=== PATIENT | female | born 1975 | race American Indian/Alaskan Native ===

== ENCOUNTER 2016-07-25 21:41 | Emergency (ER) | payer SELFPAY ==
[2016-07-25 23:37] LABS: Basophils % (Auto) 0.5 % (0.0-1.8); Eosinophils % (Auto) 3.7 % (0.0-4.3); Hematocrit 26.4 % (30.3-42.9); Hemoglobin 7.9 gm/dl (10.1-14.3); Mean Corpuscular HGB Conc 30 % (30-34); Platelet Count 328 K/mm3 (140-440); Red Blood Count 4.12 M/mm3 (3.65-5.03); White Blood Count 9.4 K/mm3 (4.5-11.0)
[2016-07-25 23:51] LABS: Anion Gap 20 mmol/L; BUN/Creatinine Ratio 11.42; Blood Urea Nitrogen 8 mg/dL (7-17); Calcium 8.9 mg/dL (8.4-10.2); Carbon Dioxide 23 mmol/L (22-30); Chloride 99.2 mmol/L (98-107); Glucose 138 mg/dL (65-100); Sodium 138 mmol/L (137-145)
[2016-07-25 23:54] LABS: INR 1.03 (0.87-1.13)
[2016-07-25 23:55] LABS: Partial Thromboplastin Time 29.3 Sec. (24.2-36.6)
[2016-07-25 23:58] LABS: Mean Corpuscular Hemoglobin 19 pg (28-32); Mean Corpuscular Volume 64 fl (79-97)
[2016-07-26 00:08] VITALS: BP 203/113
[2016-07-26] MEDS ORDERED: NORVASC PO ONE (00:13)
[2016-07-26] MEDS ORDERED: MAGNESIUM SULFATE 2GM/50ML 2 GM/50 ML BAG IV ONE (00:14)
[2016-07-26] MEDS ORDERED: BENADRYL IV ONE (00:15)
--- NOTE | 2016-07-26 02:41 | Cat Scan Report ---
FINAL REPORT PROCEDURE: CT HEAD/BRAIN WO CON TECHNIQUE: Computerized tomography of the head was performed without contrast material. HISTORY: blurry vision, dizziness x 1 day COMPARISON: No prior studies are available for comparison. FINDINGS: Skull and scalp: Normal. Paranasal sinuses: Normal. Ventricles and subarachnoid spaces: Normal. Cerebrum: No evidence of hemorrhage, acute infarction or mass . Cerebellum and brainstem: No evidence of hemorrhage, acute infarction or mass. Vasculature: Normal. Comments: None. IMPRESSION: Normal Examination
--- NOTE | 2016-07-30 19:53 | ED Elopement Review ---
ED Pt Elopement review - Results review Lab results: Laboratory Tests 07/25/16 07/25/16 07/25/16 23:15 23:15 23:15 WBC 9.4 RBC 4.12 Hgb 7.9 L Hct 26.4 L MCV 64 L MCH 19 L MCHC 30 RDW 20.0 H Plt Count 328 Lymph % (Auto) 27.7 [place] % (Auto) 9.2 H Eos % (Auto) 3.7 Baso % (Auto) 0.5 Lymph # 2.6 [place] # 0.9 H Eos # 0.4 Baso # 0.0 Seg Neutrophils % 58.9 Seg Neutrophils # 5.5 PT 13.4 INR 1.03 APTT 29.3 Thrombin Time Sodium 138 Potassium 4.0 Chloride 99.2 Carbon Dioxide 23 Anion Gap 20 BUN 8 Creatinine 0.7 Estimated GFR > 60 BUN/Creatinine Ratio 11.42 Glucose 138 H Calcium 8.9 Troponin T < 0.010 Urine HCG, Qual 07/25/16 07/26/16 23:15 Unknown WBC RBC Hgb Hct MCV MCH MCHC RDW Plt Count Lymph % (Auto) [place] % (Auto) Eos % (Auto) Baso % (Auto) Lymph # [place] # Eos # Baso # Seg Neutrophils % Seg Neutrophils # PT INR APTT Thrombin Time 15.2 Sodium Potassium Chloride Carbon Dioxide Anion Gap BUN Creatinine Estimated GFR BUN/Creatinine Ratio Glucose Calcium Troponin T Urine HCG, Qual Negative - Call Back decision Pt Call Back Decision: Pt to F/U with PMD (patient should follow up with primary care doctor for anemia and hypertension)
== END 2016-07-26 04:25 | disposition left against medical advice (07) ==
LOC: ED 21:41
DX: I10 Essential (primary) hypertension (principal); R42 Dizziness and giddiness; H53.8 Other visual disturbances; Z72.0 Tobacco use; Z91.041 Radiographic dye allergy status; Z91.013 Allergy to seafood; Z91.02 Food additives allergy status; Z53.21 Procedure and treatment not carried out due to patient leaving prior to being seen by health care provider
CPT/HCPCS: 36415; 70450; 80048; 81025; 84484; 85025; 85610; 85670; 85730; 93005; 93010; 96365; 96375; J1200; J3475

== ENCOUNTER 2018-03-22 05:45 | Emergency (ER) | payer OTHER ==
[2018-03-22] MEDS ORDERED: NORMODYNE IV ONE (07:17)
[2018-03-22 07:28] LABS: Basophils # (Auto) 0.1 K/mm3 (0.0-0.1); Eosinophils # (Auto) 0.3 K/mm3 (0.0-0.4); Eosinophils % (Auto) 2.5 % (0.0-4.3); Hematocrit 36.5 % (30.3-42.9); Hemoglobin 11.4 gm/dl (10.1-14.3); Lymphocytes # (Auto) 2.7 K/mm3 (1.2-5.4); Lymphocytes % (Auto) 20.1 % (13.4-35.0); Mean Corpuscular HGB Conc 31 % (30-34); Mean Corpuscular Volume 71 fl (79-97); Monocytes # (Auto) 0.8 K/mm3 (0.0-0.8); Monocytes % (Auto) 5.9 % (0.0-7.3); Platelet Count 308 K/mm3 (140-440); Red Blood Count 5.15 M/mm3 (3.65-5.03); Red Cell Distribution Width 16.3 % (13.2-15.2)
--- NOTE | 2018-03-22 08:04 | Emergency Department Report ---
ED General Adult HPI - General Chief complaint: High BP Stated complaint: HIGH BLOOD PRESSURE Time Seen by Provider: 03/22/18 06:51 Source: patient Mode of arrival: Ambulatory Limitations: No Limitations - History of Present Illness Initial comments: This is a 42 year old lady with hypertension who has checked back into the emergency department because of high blood pressure. She was seen earlier and I believe the provider concentrated on her complaints of foot pain or swelling. She tells me that she has had podiatric surgery on both her feet in September. She was once prescribed an antibiotic but no definitive diagnosis of infection was made. She states that her right ankle is swollen and painful. This has been going on for months. She denies any recent fever or chills. She states that she does have some shortness of breath on exertion but not at rest. -: Gradual, month(s) Location: right Radiation: non-radiation (ankle) Severity scale (0 -10): 0 Quality: aching Consistency: intermittent Improves with: none Worsens with: movement Associated Symptoms: denies other symptoms (exertional dyspnea otherwise negative) - Related Data Home Medications Medication Instructions Recorded Confirmed Last Taken Fexofenadine HCl [Odalis Allergy] 180 mg PO DAILY 04/19/17 03/22/18 04/18/17 Albuterol Sulfate [Ventolin HFA] 2 puff IH Q4H PRN 03/22/18 03/22/18 Unknown Baclofen [Lioresal] 10 mg PO DAILY 03/22/18 03/22/18 Unknown Ferrous Sulfate [Iron] 325 mg PO DAILY 03/22/18 03/22/18 Unknown Gabapentin [Neurontin] 300 mg PO BID 03/22/18 03/22/18 Unknown Lisinopril [Zestril TAB] 40 mg PO QDAY 03/22/18 03/22/18 03/21/18 Spironolactone 50 mg PO 03/22/18 Unknown amLODIPine [Norvasc] 10 mg PO DAILY 03/22/18 03/22/18 03/21/18 Previous Rx's Medication Instructions Recorded Last Taken Type Carvedilol [Coreg] 25 mg PO BID tablet 04/21/17 03/21/18 Rx HYDROcodone/ACETAMINOPHEN 1 each PO 4XW #20 tablet 04/21/17 03/21/18 Rx [Hydrocodon-Acetaminophen 5-325] Omeprazole 20 mg PO DAILY #30 tablet. 04/21/17 03/21/18 Rx Valsartan/Hydrochlorothiazide 1 each PO DAILY #30 tablet 04/21/17 03/21/18 Rx [Diovan Hct 160-25 mg] Cefuroxime Axetil [Ceftin] 250 mg PO Q12H #70 ml 03/22/18 Unknown Rx traMADol [Ultram 50 MG tab] 50 mg PO Q6HR PRN #12 tablet 03/22/18 Unknown Rx Allergies Allergy/AdvReac Type Severity Reaction Status Date / Time iodine Allergy Swelling Verified 12/31/15 14:41 latex Allergy Unknown Verified 03/22/18 06:42 iv dye Allergy Swelling Uncoded 01/02/13 00:50 shrimp Allergy Swelling Uncoded 01/02/13 00:50 ED Review of Systems ROS: Stated complaint: HIGH BLOOD PRESSURE Other details as noted in HPI Constitutional: denies: chills, fever Eyes: denies: eye pain, eye discharge, vision change ENT: denies: ear pain, throat pain Respiratory: SOB with exertion. denies: cough, shortness of breath, wheezing Cardiovascular: denies: chest pain, palpitations Endocrine: no symptoms reported Gastrointestinal: denies: abdominal pain, nausea, diarrhea Genitourinary: denies: urgency, dysuria, discharge Musculoskeletal: as per HPI, joint swelling. denies: back pain, arthralgia Skin: denies: rash, lesions Neurological: denies: headache, weakness, paresthesias Psychiatric: denies: anxiety, depression Hematological/Lymphatic: denies: easy bleeding, easy bruising ED Past Medical Hx - Past Medical History Previous Medical History?: Yes Hx Hypertension: Yes Hx Congestive Heart Failure: No Hx Diabetes: No Hx Asthma: No Hx COPD: No Hx HIV: No Additional medical history: irreg heart rate - Surgical History Past Surgical History?: Yes Additional Surgical History: csection hand surgery foot surgery - Social History Smoking Status: Current Every Day Smoker Substance Use Type: None - Medications Home Medications: Home Medications Medication Instructions Recorded Confirmed Last Taken Type Fexofenadine HCl [Odalis Allergy] 180 mg PO DAILY 04/19/17 03/22/18 04/18/17 History Carvedilol [Coreg] 25 mg PO BID tablet 04/21/17 03/22/18 03/21/18 Rx HYDROcodone/ACETAMINOPHEN 1 each PO 4XW #20 tablet 04/21/17 03/22/18 03/21/18 Rx [Hydrocodon-Acetaminophen 5-325] Omeprazole 20 mg PO DAILY #30 tablet. 04/21/17 03/22/18 03/21/18 Rx Valsartan/Hydrochlorothiazide 1 each PO DAILY #30 tablet 04/21/17 03/22/18 03/21/18 Rx [Diovan Hct 160-25 mg] Albuterol Sulfate [Ventolin HFA] 2 puff IH Q4H PRN 03/22/18 03/22/18 Unknown History Baclofen [Lioresal] 10 mg PO DAILY 03/22/18 03/22/18 Unknown History Cefuroxime Axetil [Ceftin] 250 mg PO Q12H #70 ml 03/22/18 Unknown Rx Ferrous Sulfate [Iron] 325 mg PO DAILY 03/22/18 03/22/18 Unknown History Gabapentin [Neurontin] 300 mg PO BID 03/22/18 03/22/18 Unknown History Lisinopril [Zestril TAB] 40 mg PO QDAY 03/22/18 03/22/18 03/21/18 History Spironolactone 50 mg PO 03/22/18 Unknown History amLODIPine [Norvasc] 10 mg PO DAILY 03/22/18 03/22/18 03/21/18 History traMADol [Ultram 50 MG tab] 50 mg PO Q6HR PRN #12 tablet 03/22/18 03/22/18 Unknown Rx ED Physical Exam - General Limitations: No Limitations General appearance: alert, in no apparent distress - Head Head exam: Present: atraumatic, normocephalic - Eye Eye exam: Present: normal appearance. Absent: scleral icterus - ENT ENT exam: Present: mucous membranes moist - Neck Neck exam: Present: normal inspection - Respiratory Respiratory exam: Present: normal lung sounds bilaterally. Absent: respiratory distress - Cardiovascular Cardiovascular Exam: Present: regular rate, normal rhythm. Absent: systolic m urmur, diastolic murmur, rubs, gallop - GI/Abdominal GI/Abdominal exam: Present: soft, normal bowel sounds. Absent: distended, tenderness, guarding, rebound - Extremities Exam Extremities exam: Present: normal capillary refill, other (there is minor right ankle swelling and mild pain on range of motion). Absent: calf tenderness - Back Exam Back exam: Present: normal inspection. Absent: CVA tenderness (R), CVA tenderness (L) - Neurological Exam Neurological exam: Present: alert, oriented X3, CN II-XII intact. Absent: motor sensory deficit - Psychiatric Psychiatric exam: Present: normal affect, normal mood - Skin Skin exam: Present: warm, dry, intact, normal color. Absent: rash ED Course Vital Signs 03/22/18 03/22/18 03/22/18 05:52 06:32 06:38 Temperature 98.0 F 97.8 F Pulse Rate 77 84 Respiratory 20 18 Rate Blood Pressure 206/129 184/90 Blood Pressure 184/90 [Right] O2 Sat by Pulse 99 100 Oximetry 03/22/18 03/22/18 03/22/18 07:00 08:00 08:23 Temperature Pulse Rate Respiratory Rate Blood Pressure 195/128 200/118 156/105 Blood Pressure [Right] O2 Sat by Pulse Oximetry 03/22/18 08:38 Temperature 97.8 F Pulse Rate 68 Respiratory 20 Rate Blood Pressure Blood Pressure 158/105 [Right] O2 Sat by Pulse 98 Oximetry - Reevaluation(s) Reevaluation #1: Patient without complaints. Blood pressure 135/94. She will be treated for UTI. She states that she is on "5 medicines" for her blood pressure and has a physician at [facility] for management. She is appropriate for outpatient follow-up. 03/22/18 11:02 ED Medical Decision Making - Lab Data Result diagrams: 03/22/18 07:15 03/22/18 07:15 Laboratory Results - last 24 hr 03/22/18 03/22/18 03/22/18 07:15 07:15 07:15 WBC 13.5 H RBC 5.15 H Hgb 11.4 Hct 36.5 MCV 71 L MCH 22 L MCHC 31 RDW 16.3 H Plt Count 308 Lymph % (Auto) 20.1 [place] % (Auto) 5.9 Eos % (Auto) 2.5 Baso % (Auto) 1.0 Lymph # 2.7 [place] # 0.8 Eos # 0.3 Baso # 0.1 Seg Neutrophils % 70.5 H Seg Neutrophils # 9.5 H Sodium 139 Potassium 4.3 Chloride 100.2 Carbon Dioxide 27 Anion Gap 16 BUN 11 Creatinine 0.8 Estimated GFR > 60 BUN/Creatinine Ratio 14 Glucose 114 H Lactic Acid 0.80 Calcium 9.4 Magnesium 1.90 Total Bilirubin 0.20 Direct Bilirubin < 0.2 Indirect Bilirubin 0.0 AST 16 ALT 13 Alkaline Phosphatase 72 Total Creatine Kinase 109 CK-MB (CK-2) 2.2 CK-MB (CK-2) Rel Index 2.0 Total Protein 7.9 Albumin 4.7 Albumin/Globulin Ratio 1.5 Urine Color Urine Turbidity Urine pH Ur Specific [place] Urine Protein Urine Glucose (UA) Urine Ketones Urine Blood Urine Nitrite Urine Bilirubin Urine Urobilinogen Ur Leukocyte Esterase Urine WBC (Auto) Urine RBC (Auto) U Epithel Cells (Auto) Urine Bacteria (Auto) Urine Mucus Urine HCG, Qual Urine Opiates Screen Urine Methadone Screen Ur Barbiturates Screen Ur Phencyclidine Scrn Ur Amphetamines Screen U Benzodiazepines Scrn Urine Cocaine Screen U Marijuana (THC) Screen Drugs of Abuse Note 03/22/18 03/22/18 Unknown Unknown WBC RBC Hgb Hct MCV MCH MCHC RDW Plt Count Lymph % (Auto) [place] % (Auto) Eos % (Auto) Baso % (Auto) Lymph # [place] # Eos # Baso # Seg Neutrophils % Seg Neutrophils # Sodium Potassium Chloride Carbon Dioxide Anion Gap BUN Creatinine Estimated GFR BUN/Creatinine Ratio Glucose Lactic Acid Calcium Magnesium Total Bilirubin Direct Bilirubin Indirect Bilirubin AST ALT Alkaline Phosphatase Total Creatine Kinase CK-MB (CK-2) CK-MB (CK-2) Rel Index Total Protein Albumin Albumin/Globulin Ratio Urine Color Yellow Urine Turbidity Slightly-cloudy Urine pH 7.0 Ur Specific [place] 1.008 Urine Protein <15 mg/dl Urine Glucose (UA) Neg Urine Ketones Neg Urine Blood Mod Urine Nitrite Neg Urine Bilirubin Neg Urine Urobilinogen < 2.0 Ur Leukocyte Esterase Lg Urine WBC (Auto) 8.0 H Urine RBC (Auto) 4.0 U Epithel Cells (Auto) 13.0 Urine Bacteria (Auto) 1+ Urine Mucus Few Urine HCG, Qual Negative Urine Opiates Screen Presumptive negative Urine Methadone Screen Presumptive negative Ur Barbiturates Screen Presumptive negative Ur Phencyclidine Scrn Presumptive negative Ur Amphetamines Screen Presumptive negative U Benzodiazepines Scrn Presumptive negative Urine Cocaine Screen Presumptive negative U Marijuana (THC) Screen Presumptive negative Drugs of Abuse Note Disclamer Critical care attestation.: If time is entered above; I have spent that time in minutes in the direct care of this critically ill patient, excluding procedure time. ED Disposition Clinical Impression: Poorly-controlled hypertension UTI (urinary tract infection) Qualifiers: Urinary tract infection type: site unspecified Hematuria presence: without hematuria Qualified Code(s): N39.0 - Urinary tract infection, site not specified Disposition: TO HOME OR SELFCARE Is pt being admited?: No Does the pt Need Aspirin: No Condition: Stable Instructions: Hypertension (ED), Urinary Tract Infection in Women (ED) Additional Instructions: Return to the emergency department any acute change or problems. Otherwise follow-up with her physicians at [facility]. Rx for urinary tract infection. Prescriptions: Cefuroxime Axetil [Ceftin] 250 mg PO Q12H #70 ml Referrals: PRIMARY CARE, [Primary Care Provider] - 3-5 Days Time of Disposition: 11:03
[2018-03-22 08:15] LABS: Creatine Kinase MB 2.2 ng/mL (0.0-4.0)
[2018-03-22 08:17] LABS: Alanine Aminotransferase 13 units/L (7-56); Albumin 4.7 g/dL (3.9-5); BUN/Creatinine Ratio 14; Blood Urea Nitrogen 11 mg/dL (7-17); Calcium 9.4 mg/dL (8.4-10.2); Hemolysis Index 10
[2018-03-22 08:27] LABS: Bilirubin,Direct < 0.2 mg/dL (0-0.2)
[2018-03-22 08:42] LABS: Amphetamine Screen,Urine PRESUMPTIVE NEGATIVE; Bacteria,Urine 1+ /HPF (Negative); Benzodiazepines Screen,Urine PRESUMPTIVE NEGATIVE; Bilirubin,Urine NEG (Negative); Blood,Urine MOD (Negative); Cannabinoid Screen,Urine PRESUMPTIVE NEGATIVE; Cocaine Screen,Urine PRESUMPTIVE NEGATIVE; Color,Urine Yellow (Yellow); Methadone Screen,Urine PRESUMPTIVE NEGATIVE; Mucus,Urine FEW /HPF; Opiate Screen,Urine PRESUMPTIVE NEGATIVE; Protein,Urine <15 mg/dL mg/dL (Negative); Urobilinogen,Urine < 2.0 mg/dL (<2.0)
[2018-03-22 08:51] LABS: HCG Qualitative,Urine Negative (Negative)
--- NOTE | 2018-03-22 10:32 | XRay Report ---
FINAL REPORT EXAM: XR CHEST 1V AP HISTORY: hypertension TECHNIQUE: Frontal chest x-ray. PRIORS: None currently available. FINDINGS: Cardiac silhouette is within normal limits. There is no effusion. There is no pneumothorax. There is no consolidation. There are no suspicious osseous lesions. IMPRESSION: No acute cardiopulmonary findings.
--- NOTE | 2018-03-22 10:33 | Vascular Lab Report ---
FINAL REPORT EXAM: VL VENOUS DUPLEX LE RT HISTORY: swelling have podiatric surg TECHNIQUE: [place] scale, color and pulsed Doppler ultrasound with color flow and spectral analysis go luation of the right lower extremity was performed to assess for deep vein thrombosis. PRIORS: None currently available. FINDINGS: RIGHT Extremity: There is normal grayscale appearance and compressibility. Normal phasic pulsed Doppler and normal color Doppler flow are visualized. The interrogated vessels s how normal augmentation. IMPRESSION: No evidence for DVT.
[2018-03-22] MEDS ORDERED: ROCEPHIN/NS 1 GM/50 ML 1 GM/50 ML BAG IV ONE (11:00)
[2018-03-22] MEDS ORDERED: DUONEB *Not for PRN Use IH ONE (11:05)
[2018-03-22 13:14] VITALS: BP 134/104
== END 2018-03-22 13:18 | disposition home or self-care (01) ==
LOC: ED 05:45
DX: N39.0 Urinary tract infection, site not specified (principal); R06.02 Shortness of breath; I10 Essential (primary) hypertension; M25.471 Effusion, right ankle; F17.200 Nicotine dependence, unspecified, uncomplicated; Z88.8 Allergy status to other drugs, medicaments and biological substances; Z91.040 Latex allergy status; Z91.013 Allergy to seafood
CPT/HCPCS: 36415; 71045; 80048; 80076; 80307; 81001; 81025; 82140; 82550; 82553; 83735; 85025; 87040; 93005; 93010; 93971; 94640; 96365; 96375; 99285; J0696

== ENCOUNTER 2018-05-10 21:47 | Emergency (ER) | payer OTHER ==
[2018-05-10 22:11] VITALS: BP 180/110
== END 2018-05-11 00:21 | disposition left against medical advice (07) ==
LOC: ED 21:47
DX: I10 Essential (primary) hypertension (principal); Z53.21 Procedure and treatment not carried out due to patient leaving prior to being seen by health care provider

== ENCOUNTER 2018-06-04 12:14 | Outpatient (CLI) | payer OTHER ==
--- NOTE | 2018-06-04 12:51 | XRay Report ---
Right ankle 3 views: History: Ankle pain. Findings: Mild arthritic changes in the talotibial joint. Moderate arthritic changes at dorsal aspect of talonavicular joint.. Spur at the posterior superior calcaneum. Impression: Arthritic changes as detailed above.
--- NOTE | 2018-06-04 12:52 | XRay Report ---
Bilateral single view standing knees: Next History: Unilateral posttraumatic osteoarthritis. Findings: There is narrowing noted of the medial compartment of right and left knee joint. The articular surfaces appears unremarkable. There is tiny spur noted at the lateral aspect of the lateral femoral condyle of right and left knee. Bilateral widening of the lateral compartment of knee joint Impression: Findings as detailed above.
== END 2018-06-04 12:15 | disposition home or self-care (01) ==
LOC: XRAY 12:14
PROVIDERS: ATTEND Orthopaedic Surgery
DX: M19.071 Primary osteoarthritis, right ankle and foot (principal); M17.32 Unilateral post-traumatic osteoarthritis, left knee; M76.892 Other specified enthesopathies of left lower limb, excluding foot; M76.891 Other specified enthesopathies of right lower limb, excluding foot; J45.909 Unspecified asthma, uncomplicated; I10 Essential (primary) hypertension; M19.90 Unspecified osteoarthritis, unspecified site
CPT/HCPCS: 73565

== ENCOUNTER → 2018-06-24 | Outpatient (CLI) | payer OTHER | END | disposition short-term general hospital (02) | LOC: SLR 11:00 | PROVIDERS: ATTEND Otolaryngology | DX: G47.30 Sleep apnea, unspecified (principal); R40.0 Somnolence; I10 Essential (primary) hypertension; J45.909 Unspecified asthma, uncomplicated; M19.90 Unspecified osteoarthritis, unspecified site; F17.200 Nicotine dependence, unspecified, uncomplicated | CPT/HCPCS: G0399 ==

== ENCOUNTER 2020-07-21 09:22 | Outpatient (CLI) | payer OTHER ==
--- NOTE | 2020-07-21 10:52 | XRay Report ---
Right wrist radiograph, 2 views. HISTORY: Pain COMPARISON: None FINDINGS/IMPRESSION: No acute fracture or malalignment. Minimal right thumb CMC osteoarthritis. There is a corticated erosion at the proximal ulnar aspect of the lunate. This may be seen with ulnocarpal abutment. No focal soft tissue abnormality. Signer Name: Eduard Weathers MD Signed: 07/21/2020 10:48 AM Workstation Name: [id number]
--- NOTE | 2020-07-21 10:53 | XRay Report ---
RIGHT SHOULDER 3 VIEW(S) INDICATION / CLINICAL INFORMATION: RIGHT SHOULDER PAIN COMPARISON: None available. FINDINGS: BONES / JOINT(S): No acute fracture or subluxation. Mild AC joint arthrosis. SOFT TISSUES: No significant abnormality. ADDITIONAL FINDINGS: None. Signer Name: Lit Matos MD Signed: 07/21/2020 10:48 AM Workstation Name: [id number]
== END 2020-07-21 09:23 | disposition home or self-care (01) ==
LOC: XRAY 09:22
PROVIDERS: ATTEND Internal Medicine
DX: M19.031 Primary osteoarthritis, right wrist (principal); M19.011 Primary osteoarthritis, right shoulder

== ENCOUNTER 2020-11-23 23:51 | Emergency (ER) | payer SELFPAY ==
[2020-11-24] MEDS ORDERED: cloNIDine 0.2 MG TAB PO ONE (01:41)
[2020-11-24] MEDS ORDERED: traMADol 50 MG TAB PO ONE (02:05)
--- NOTE | 2020-11-24 02:08 | Emergency Department Report ---
ED General Adult HPI - General Chief complaint: High BP Stated complaint: HYPERTENSIVE Time Seen by Provider: 11/24/20 01:41 Source: patient Mode of arrival: Ambulatory Limitations: No Limitations - History of Present Illness Initial comments: The patient was evaluated in the emergency department for symptoms described in the history of present illness. He/she was evaluated in the context of the global COVID-19 pandemic, which necessitated consideration that the patient might be at risk for infection with the virus that causes COVID-19. Institution al protocols and algorithms that pertain to the evaluation of patients at risk for COVID-19 are in a state of rapid change based on information released by regulatory bodies including the CDC and federal and state organizations. These policies and algorithms were followed during the patient's care in the emergency department. Please note that these policies, procedures and recommendations changed on a rapid basis. 45-year-old -[place] female presents to the emergency room for hypertension which she reports she is on 8 different blood pressure medicines. Patient reports that she she feels that she has a condom retained in her vaginal area. Patient states she had intercourse and was not able to find the condom from the weekend. Patient reports that she suffers from headaches all the time secondary to her blood pressure. Patient states that she is compliant with her blood pressure medicine. Onset/Timin Location: pelvis Severity scale (0 -10): 2 Improves with: none Worsens with: none Associated Symptoms: denies other symptoms. denies: cough, diaphoresis, fever/chills Treatments Prior to Arrival: none - Related Data Home Medications Medication Instructions Recorded Confirmed Last Taken Fexofenadine HCl [Odalis Allergy] 180 mg PO DAILY 04/19/17 03/22/18 04/18/17 Albuterol Sulfate [Ventolin HFA] 2 puff IH Q4H PRN 03/22/18 03/22/18 Unknown Baclofen [Lioresal] 10 mg PO DAILY 03/22/18 03/22/18 Unknown Ferrous Sulfate [Iron] 325 mg PO DAILY 03/22/18 03/22/18 Unknown Gabapentin [Neurontin] 300 mg PO BID 03/22/18 03/22/18 Unknown Spironolactone 50 mg PO 03/22/18 Unknown amLODIPine 10 mg PO DAILY 03/22/18 03/22/18 03/21/18 lisinopriL [Zestril TAB] 40 mg PO QDAY 03/22/18 03/22/18 03/21/18 Previous Rx's Medication Instructions Recorded Last Taken Type HYDROcodone/ACETAMINOPHEN 1 each PO 4XW #20 tablet 04/21/17 03/21/18 Rx [Hydrocodon-Acetaminophen 5-325] Omeprazole 20 mg PO DAILY #30 tablet. 04/21/17 03/21/18 Rx Valsartan/Hydrochlorothiazide 1 each PO DAILY #30 tablet 04/21/17 03/21/18 Rx [Diovan Hct 160-25 mg] carvediloL [Coreg] 25 mg PO BID tablet 04/21/17 03/21/18 Rx Cefuroxime Axetil [Ceftin] 250 mg PO Q12H #70 ml 03/22/18 Unknown Rx traMADoL [Ultram 50 MG tab] 50 mg PO Q6HR PRN #12 tablet 03/22/18 Unknown Rx traMADoL [Ultram] 50 mg PO Q4HR PRN #10 tablet 03/22/18 Unknown Rx traMADoL [Ultram 50 MG tab] 50 mg PO Q6HR PRN #8 tablet 11/24/20 Unknown Rx Allergies Allergy/AdvReac Type Severity Reaction Status Date / Time iodine Allergy Swelling Verified 11/24/20 01:02 latex Allergy Unknown Verified 11/24/20 01:02 iv dye Allergy Swelling Uncoded 01/02/13 00:50 shrimp Allergy Swelling Uncoded 01/02/13 00:50 ED Review of Systems ROS: Stated complaint: HYPERTENSIVE Other details as noted in HPI Comment: All other systems reviewed and negative ED Past Medical Hx - Past Medical History Hx Hypertension: Yes Hx Congestive Heart Failure: No Hx Diabetes: No Hx Arthritis: Yes Hx Asthma: Yes Hx COPD: No Hx HIV: No Additional medical history: irreg heart rate - Surgical History Additional Surgical History: csection hand surgery foot surgery - Social History Smoking Status: Current Some Day Smoker Substance Use Type: None - Medications Home Medications: Home Medications Medication Instructions Recorded Confirmed Last Taken Type Fexofenadine HCl [Odalis Allergy] 180 mg PO DAILY 04/19/17 03/22/18 04/18/17 History HYDROcodone/ACETAMINOPHEN 1 each PO 4XW #20 tablet 04/21/17 03/22/18 03/21/18 Rx [Hydrocodon-Acetaminophen 5-325] Omeprazole 20 mg PO DAILY #30 tablet. 04/21/17 03/22/18 03/21/18 Rx Valsartan/Hydrochlorothiazide 1 each PO DAILY #30 tablet 04/21/17 03/22/18 03/21/18 Rx [Diovan Hct 160-25 mg] carvediloL [Coreg] 25 mg PO BID tablet 04/21/17 03/22/18 03/21/18 Rx Albuterol Sulfate [Ventolin HFA] 2 puff IH Q4H PRN 03/22/18 03/22/18 Unknown History Baclofen [Lioresal] 10 mg PO DAILY 03/22/18 03/22/18 Unknown History Cefuroxime Axetil [Ceftin] 250 mg PO Q12H #70 ml 03/22/18 Unknown Rx Ferrous Sulfate [Iron] 325 mg PO DAILY 03/22/18 03/22/18 Unknown History Gabapentin [Neurontin] 300 mg PO BID 03/22/18 03/22/18 Unknown History Spironolactone 50 mg PO 03/22/18 Unknown History amLODIPine 10 mg PO DAILY 03/22/18 03/22/18 03/21/18 History lisinopriL [Zestril TAB] 40 mg PO QDAY 03/22/18 03/22/18 03/21/18 History traMADoL [Ultram 50 MG tab] 50 mg PO Q6HR PRN #12 tablet 03/22/18 03/22/18 Unknown Rx traMADoL [Ultram] 50 mg PO Q4HR PRN #10 tablet 03/22/18 Unknown Rx traMADoL [Ultram 50 MG tab] 50 mg PO Q6HR PRN #8 tablet 11/24/20 Unknown Rx ED Physical Exam - General Limitations: No Limitations General appearance: alert, in no apparent distress - Head Head exam: Present: atraumatic, normocephalic - Eye Eye exam: Present: normal appearance - ENT ENT exam: Present: mucous membranes moist - Neck Neck exam: Present: normal inspection, full ROM - Respiratory Respiratory exam: Present: normal lung sounds bilaterally. Absent: accessory muscle use - Cardiovascular Cardiovascular Exam: Present: regular rate - GI/Abdominal GI/Abdominal exam: Present: soft. Absent: distended, tenderness - External exam: Present: normal external exam Speculum exam: Absent: foreign body Bi-manual exam: Present: normal bi-manual exam. Absent: cervical motion tendernes, adnexal tenderness, adnexal mass - Extremities Exam Extremities exam: Present: normal inspection, full ROM - Back Exam Back exam: Present: normal inspection - Neurological Exam Neurological exam: Present: alert, oriented X3, normal gait - Psychiatric Psychiatric exam: Present: normal affect, normal mood - Skin Skin exam: Present: warm, dry, intact, normal color. Absent: rash ED Course Vital Signs 11/24/20 00:56 Temperature 98.9 F Pulse Rate 70 Respiratory 18 Rate Blood Pressure 208/114 O2 Sat by Pulse 98 Oximetry Critical care attestation.: If time is entered above; I have spent that time in minutes in the direct care of this critically ill patient, excluding procedure time. ED Disposition Clinical Impression: HTN (hypertension), Normal vaginal exam Disposition: HOME / SELF CARE / HOMELESS Is pt being admited?: No Does the pt Need Aspirin: No Condition: Stable Instructions: Hypertension (ED), Hypertension, Adult, [id number] Additional Instructions: Examination is within normal limits. Labs are stable. Encourage you to continue with your blood pressure medications after prescribed. Follow-up with your primary care provider and [facility]. Prescriptions: traMADoL [Ultram 50 MG tab] 50 mg PO Q6HR PRN #8 tablet PRN Reason: Pain , Severe (7-10) Referrals: [facility] [Provider Group] - 3-5 Days
[2020-11-24 03:25] VITALS: BP 207/118
== END 2020-11-24 05:35 | disposition home or self-care (01) ==
LOC: ED 23:51
DX: I10 Essential (primary) hypertension (principal); Z01.419 Encounter for gynecological examination (general) (routine) without abnormal findings; J45.909 Unspecified asthma, uncomplicated; M19.90 Unspecified osteoarthritis, unspecified site; I49.9 Cardiac arrhythmia, unspecified; Z98.890 Other specified postprocedural states; F17.290 Nicotine dependence, other tobacco product, uncomplicated; Z91.040 Latex allergy status; Z91.013 Allergy to seafood; Z91.041 Radiographic dye allergy status
CPT/HCPCS: 87210; 99284

== ENCOUNTER 2020-12-07 19:50 | Emergency (ER) | payer SELFPAY ==
[2020-12-07] MEDS ORDERED: cloNIDine 0.2 MG TAB PO STA (21:22)
--- NOTE | 2020-12-07 22:00 | Cat Scan Report ---
CT BRAIN: 12/07/2020 INDICATION / CLINICAL INFORMATION: Pt complains of headache dizziness and HTN. COMPARISON: 07/26/2016 FINDINGS: BRAIN/INTRACRANIAL STRUCTURES: Unenhanced CT images of the brain demonstrate no evidence of acute int racranial abnormality. Ventricles and sulci are normal in size and shape. There is no evidence of acute ischemic injury, hemorrhage, or mass. There are no abnormal extra-axial fluid collections. EXTRACRANIAL STRUCTURES: Unremarkable. IMPRESSION: Negative unenhanced CT of the brain. No significant change when compared to 07/26/[address] scans at this location are performed using dose reduction to ALARA by means of automated expos ure control. Signer Name: Dheeraj Moore MD Signed: 12/07/2020 9:56 PM Workstation Name: [id number]
[2020-12-07 22:55] VITALS: BP 171/108
--- NOTE | 2020-12-08 00:17 | Emergency Department Report ---
ED General Adult HPI - General Chief complaint: Dizziness Stated complaint: BLOOD PRESSURE Time Seen by Provider: 12/07/20 21:08 Source: patient Mode of arrival: Ambulatory Limitations: No Limitations - History of Present Illness Initial comments: 45-year-old -[place] female with past medical history lung cancer and still a current smoker, also hypertension primary antihypertensive medication presents emergency department complaining of elevated blood pressure but for the last 2 days been associated with headache and dizziness which not usually the case. States that her blood pressures will be a bit better today than it usually is otherwise elevated she does follow with her primary care provider and reports compliance of her lisinopril, amlodipine, hydrochlorothiazide, clonidine a few other medications which can alcohol for her blood pressure. She reports no chest pain, no palpitations no hemoptysis, no no hematemesis no fever, chi lls, sweats. No problems contact with coronavirus. To her knowledge. - Related Data Home Medications Medication Instructions Recorded Confirmed Last Taken Fexofenadine HCl [Odalis Allergy] 180 mg PO DAILY 04/19/17 03/22/18 04/18/17 Albuterol Sulfate [Ventolin HFA] 2 puff IH Q4H PRN 03/22/18 03/22/18 Unknown Baclofen [Lioresal] 10 mg PO DAILY 03/22/18 03/22/18 Unknown Ferrous Sulfate [Iron] 325 mg PO DAILY 03/22/18 03/22/18 Unknown Gabapentin [Neurontin] 300 mg PO BID 03/22/18 03/22/18 Unknown Spironolactone 50 mg PO 03/22/18 Unknown amLODIPine 10 mg PO DAILY 03/22/18 03/22/18 03/21/18 lisinopriL [Zestril TAB] 40 mg PO QDAY 03/22/18 03/22/18 03/21/18 Previous Rx's Medication Instructions Recorded Last Taken Type HYDROcodone/ACETAMINOPHEN 1 each PO 4XW #20 tablet 04/21/17 03/21/18 Rx [Hydrocodon-Acetaminophen 5-325] Omeprazole 20 mg PO DAILY #30 tablet. 04/21/17 03/21/18 Rx Valsartan/Hydrochlorothiazide 1 each PO DAILY #30 tablet 04/21/17 03/21/18 Rx [Diovan Hct 160-25 mg] carvediloL [Coreg] 25 mg PO BID tablet 04/21/17 03/21/18 Rx Cefuroxime Axetil [Ceftin] 250 mg PO Q12H #70 ml 03/22/18 Unknown Rx traMADoL [Ultram 50 MG tab] 50 mg PO Q6HR PRN #12 tablet 03/22/18 Unknown Rx traMADoL [Ultram] 50 mg PO Q4HR PRN #10 tablet 03/22/18 Unknown Rx traMADoL [Ultram 50 MG tab] 50 mg PO Q6HR PRN #8 tablet 11/24/20 Unknown Rx Allergies Allergy/AdvReac Type Severity Reaction Status Date / Time iodine Allergy Swelling Verified 11/24/20 01:02 latex Allergy Unknown Verified 11/24/20 01:02 iv dye Allergy Swelling Uncoded 01/02/13 00:50 shrimp Allergy Swelling Uncoded 01/02/13 00:50 ED Review of Systems ROS: Stated complaint: BLOOD PRESSURE Other details as noted in HPI Comment: All other systems reviewed and negative ED Past Medical Hx - Past Medical History Previous Medical History?: Yes Hx Hypertension: Yes Hx Congestive Heart Failure: No Hx Diabetes: No Hx Arthritis: Yes Hx Psychiatric Treatment: Yes (Depression) Hx Asthma: Yes Hx COPD: No Hx HIV: No Additional medical history: irreg heart rate - Surgical History Past Surgical History?: Yes Additional Surgical History: csection hand surgery foot surgery. L4 L5 Right ankle - Social History Smoking Status: Current Some Day Smoker Substance Use Type: None - Medications Home Medications: Home Medications Medication Instructions Recorded Confirmed Last Taken Type Fexofenadine HCl [Odalis Allergy] 180 mg PO DAILY 04/19/17 03/22/18 04/18/17 History HYDROcodone/ACETAMINOPHEN 1 each PO 4XW #20 tablet 04/21/17 03/22/18 03/21/18 Rx [Hydrocodon-Acetaminophen 5-325] Omeprazole 20 mg PO DAILY #30 tablet. 04/21/17 03/22/18 03/21/18 Rx Valsartan/Hydrochlorothiazide 1 each PO DAILY #30 tablet 04/21/17 03/22/18 Rx [Diovan Hct 160-25 mg] carvediloL [Coreg] 25 mg PO BID tablet 04/21/17 03/22/18 03/21/18 Rx Albuterol Sulfate [Ventolin HFA] 2 puff IH Q4H PRN 03/22/18 03/22/18 Unknown History Baclofen [Lioresal] 10 mg PO DAILY 03/22/18 03/22/18 Unknown History Cefuroxime Axetil [Ceftin] 250 mg PO Q12H #70 ml 03/22/18 Unknown Rx Ferrous Sulfate [Iron] 325 mg PO DAILY 03/22/18 03/22/18 Unknown History Gabapentin [Neurontin] 300 mg PO BID 03/22/18 03/22/18 Unknown History Spironolactone 50 mg PO 03/22/18 Unknown History amLODIPine 10 mg PO DAILY 03/22/18 03/22/18 03/21/18 History lisinopriL [Zestril TAB] 40 mg PO QDAY 03/22/18 03/22/18 03/21/18 History traMADoL [Ultram 50 MG tab] 50 mg PO Q6HR PRN #12 tablet 03/22/18 03/22/18 Unknown Rx traMADoL [Ultram] 50 mg PO Q4HR PRN #10 tablet 03/22/18 Unknown Rx traMADoL [Ultram 50 MG tab] 50 mg PO Q6HR PRN #8 tablet 11/24/20 Unknown Rx ED Physical Exam - General Limitations: No Limitations General appearance: alert, in no apparent distress - Head Head exam: Present: atraumatic, normocephalic - Eye Eye exam: Present: normal appearance, PERRL, EOMI Pupils: Present: normal accommodation - ENT ENT exam: Present: normal exam, normal orophraynx, mucous membranes moist - Neck Neck exam: Present: normal inspection - Respiratory Respiratory exam: Present: normal lung sounds bilaterally. Absent: respiratory distress - Cardiovascular Cardiovascular Exam: Present: regular rate, normal rhythm. Absent: systolic murmur, diastolic murmur, rubs, gallop - GI/Abdominal GI/Abdominal exam: Present: soft, normal bowel sounds - Extremities Exam Extremities exam: Present: normal inspection - Back Exam Back exam: Present: normal inspection - Neurological Exam Neurological exam: Present: alert, oriented X3 - Psychiatric Psychiatric exam: Present: normal affect, normal mood - Skin Skin exam: Present: warm, dry, intact, normal color. Absent: rash ED Course Vital Signs 12/07/20 12/07/20 21:30 22:54 Pulse Rate 74 Blood Pressure 185/119 Blood Pressure 171/108 [Right] ED Medical Decision Making - Radiology Data Radiology results: report reviewed [facility] [address] [place] [address] Cat Scan Report Signed Patient: SHLOMO MELENDEZ MR#: [id number] : 1975 Acct:[id number] Age/Sex: 45 / F ADM Date: 12/07/20 Loc: ED Attending Dr: Ordering Physician: ZAIRE BALL Date of Service: 12/07/20 Procedure(s): CT head/brain wo con Accession Number(s): [id number] cc: ZAIRE BALL CT BRAIN: 12/07/2020 INDICATION / CLINICAL INFORMATION: Pt complains of headache dizziness and HTN. COMPARISON: 07/26/2016 FINDINGS: BRAIN/INTRACRANIAL STRUCTURES: Unenhanced CT images of the brain demonstrate no evidence of acute intracranial abnormality. Ventricles and sulci are normal in size and shape. There is no evidence of acute ischemic injury, hemorrhage, or mass. There are no abnormal extra- axial fluid collections. EXTRACRANIAL STRUCTURES: Unremarkable. IMPRESSION: Negative unenhanced CT of the brain. No significant change when compared to 07/26/[address] scans at this location are performed using dose reduction to ALARA by means of automated exposure control. Signer Name: Dheeraj Moore MD Signed: 12/07/2020 9:56 PM Workstation Name: [id number] Transcribed By: KIMMIE Dictated By: Dheeraj Moore MD Electronically Authenticated By: Dheeraj Moore MD Signed Date/Time: 12/07/202155 DD/ 53 TD/TT: Print Cancel - Medical Decision Making This patient presents with a headache most consistent with hypertensive headache. Differential diagnosis includes migraine versus tension type headache. No headache red flags. Neurologic exam without evidence of meningismus, focal neurologic findings.Based on the patient's history and physical there is very low clinical suspicion for significant intracranial pathology. The headache was NOT sudden onset, NOT maximal at onset, there are NO neurologic findings, the patient does NOT have a fever, the patient does NOT have any jaw claudication, the patient does NOT endorse a clotting disorder, patient DENIES any trauma or eye pain and the headache is NOT associated with dizziness or ataxia. Presentation not consistent with acute intracranial bleed to include SAH (lack of risk factors, headache history). Presentation not consistent with acute SHADE MAKER infection to include meningitis or brain abscess, Temporal arteritis unlikely, as is acute angle closure glaucoma given history and physical findings. Presentation not consistent with other acute, emergent causes of headache at this time. Plan to treat symptomatically with pain medication. No indication for imaging/LP at this time. CT scan of the brain showed no acute processes Plan: pain medication, serial reassessment blood pressure was treated with creatinine did show response to medication decreased from the initial onset which was in the 180s over the 120s Critical care attestation.: If time is entered above; I have spent that time in minutes in the direct care of this critically ill patient, excluding procedure time. ED Disposition Clinical Impression: HTN (hypertension), Dizziness, nonspecific Disposition: 01 HOME / SELF CARE / HOMELESS Is pt being admited?: No Does the pt Need Aspirin: No Condition: Stable Instructions: Hypertension (ED), Dizziness, [id number], Preventing Hypertension Additional Instructions: A CT scan was normal for any acute processes. Please follow your primary care provider so they can further adjust your blood pressure medication understand that this is a new normal range for you were still elevated. Please see your doctor for adjustment Referrals: PRIMARY MD [place] [Primary Care Provider] - 3-5 Days
== END 2020-12-08 | disposition home or self-care (01) ==
LOC: ED 19:50
DX: I10 Essential (primary) hypertension (principal); M19.90 Unspecified osteoarthritis, unspecified site; F32.9 Major depressive disorder, single episode, unspecified; J45.909 Unspecified asthma, uncomplicated; F17.200 Nicotine dependence, unspecified, uncomplicated; Z98.890 Other specified postprocedural states; Z88.8 Allergy status to other drugs, medicaments and biological substances; Z91.040 Latex allergy status; Z91.013 Allergy to seafood; Z88.6 Allergy status to analgesic agent; Z91.041 Radiographic dye allergy status
CPT/HCPCS: 70450; 99283

== ENCOUNTER 2021-02-16 11:57 | Emergency (ER) | payer SELFPAY ==
[2021-02-16] MEDS ORDERED: MORPHINE 4 MG/1 ML INJ IV ONE (12:26)
[2021-02-16] MEDS ORDERED: ONDANSETRON 4 MG/2 ML INJ IV ONE (12:26)
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
[2021-02-16] MEDS ORDERED: hydrALAZINE 20 MG/1 ML INJ IV ONE (12:31)
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
--- NOTE | 2021-02-16 13:40 | Cat Scan Report ---
CT cervical spine wo con, CT head/brain wo con INDICATION: Trauma. TECHNIQUE: CT head and cervical spine without contrast. All CT scans at this location are performed u sing CT dose reduction for ALARA by means of automated exposure control. COMPARISON: None. FINDINGS: HEAD: Intracranial: Montemayor-white matter differentiation is maintained. No intracranial hemorrhage. No extra a xial collection.. No hydrocephalus. No herniation. Sinuses: Paranasal sinuses and mastoid air cells are essentially clear. Orbits: Globes are intact Calvarium: No acute fracture. CERVICAL: Alignment: Normal alignment. Vertebrae: C1 anterior arch and the odontoid process are fused. 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 C2-C3 demonstrate partial osseous fusion. No fracture. Vertebral body heights are preserved. C1 and C2 are congruent. Atlantooccipital joint is maintained. Spondylolysis: No significant spondylosis. Soft tissues: No prevertebral soft tissue thickening. Additional findings: No significant additional findings. IMPRESSION: 1. No acute intracranial abnormality. 2.No cervical spine fracture. Signer Name: Luis Alberto Grey MD Signed: 02/16/2021 1:36 PM Workstation Name: [id number]
[2021-02-16 14:03] LABS: Basophils # (Auto) 0.1 K/mm3 (0.0-0.1); Basophils % (Auto) 0.7 % (0.0-1.8); Eosinophils # (Auto) 0.1 K/mm3 (0.0-0.4); Eosinophils % (Auto) 0.9 % (0.0-4.3); Hematocrit 37.1 % (30.3-42.9); Hemoglobin 11.1 gm/dl (10.1-14.3); Lymphocytes # (Auto) 2.2 K/mm3 (1.2-5.4); Lymphocytes % (Auto) 19.6 % (13.4-35.0); Mean Corpuscular HGB Conc 30 % (30-34); Mean Corpuscular Volume 68 fl (79-97); Monocytes # (Auto) 0.6 K/mm3 (0.0-0.8); Monocytes % (Auto) 5.5 % (0.0-7.3); Platelet Count 260 K/mm3 (140-440)
[2021-02-16 14:26] LABS: BUN/Creatinine Ratio 11; Blood Urea Nitrogen 9 mg/dL (7-17); Calcium 9.2 mg/dL (8.4-10.2); Hemolysis Index 2
[2021-02-16 14:41] VITALS: BP 169/96
[2021-02-16] MEDS ORDERED: diazePAM 10 MG/2 ML SYRINGE IV ONE (14:49)
== END 2021-02-16 15:50 | disposition home or self-care (01) ==
LOC: ED 11:57
DX: R07.89 Other chest pain (principal); R51.9 Headache, unspecified; M25.521 Pain in right elbow; M54.2 Cervicalgia; I10 Essential (primary) hypertension; M19.90 Unspecified osteoarthritis, unspecified site; F32.9 Major depressive disorder, single episode, unspecified; J45.909 Unspecified asthma, uncomplicated; F17.200 Nicotine dependence, unspecified, uncomplicated; Z88.6 Allergy status to analgesic agent; Z91.040 Latex allergy status; Z91.013 Allergy to seafood; Z91.041 Radiographic dye allergy status; Z79.899 Other long term (current) drug therapy; V89.2XXA Person injured in unspecified motor-vehicle accident, traffic, initial encounter; Y93.89 Activity, other specified; Y92.488 Other paved roadways as the place of occurrence of the external cause; Y99.8 Other external cause status
CPT/HCPCS: 36415; 70450; 71046; 72070; 72100; 72125; 73080; 80048; 84484; 84703; 85025; 96374; 96375; 99284; J0360; J2270; J2405; J3360

== ENCOUNTER 2021-08-21 16:53 | Inpatient (IN) | payer SELFPAY ==
[2021-08-21] MEDS ORDERED: ASPIRIN 325 MG TAB PO ONE (17:19)
--- NOTE | 2021-08-21 17:42 | XRay Report ---
CHEST 2 VIEWS INDICATION / CLINICAL INFORMATION: Chest Pain. COMPARISON: None available. FINDINGS: SUPPORT DEVICES: None. HEART / MEDIASTINUM: No significant abnormality. LUNGS / PLEURA: No significant pulmonary or pleural abnormality. No pneumothorax. ADDITIONAL FINDINGS: No significant additional findings. IMPRESSION: 1. No acute findings. Signer Name: Demetrius Otto MD Signed: 08/21/2021 5:38 PM Workstation Name: [email or web address]
[2021-08-21 17:59] LABS: Basophils % (Auto) 0.6 % (0.0-1.8); Eosinophils # (Auto) 0.2 K/mm3 (0.0-0.4); Eosinophils % (Auto) 2.3 % (0.0-4.3); Hemoglobin 10.6 gm/dl (10.1-14.3); Lymphocytes # (Auto) 2.2 K/mm3 (1.2-5.4); Lymphocytes % (Auto) 24.8 % (13.4-35.0); Mean Corpuscular HGB Conc 31 % (30-34); Monocytes # (Auto) 0.5 K/mm3 (0.0-0.8); Monocytes % (Auto) 5.4 % (0.0-7.3); Platelet Count 265 K/mm3 (140-440); Red Blood Count 4.86 M/mm3 (3.65-5.03); Red Cell Distribution Width 18.1 % (13.2-15.2)
[2021-08-21 18:07] LABS: Mean Corpuscular Volume 70 fl (79-97)
[2021-08-21 18:22] LABS: INR 0.92 (0.87-1.13)
[2021-08-21 18:23] LABS: Partial Thromboplastin Time 28.6 Sec. (24.2-36.6)
[2021-08-21 18:33] LABS: Alanine Aminotransferase 12 units/L (7-56); Albumin 4.2 g/dL (3.9-5); BUN/Creatinine Ratio 13; Blood Urea Nitrogen 12 mg/dL (7-17); Calcium 9.3 mg/dL (8.4-10.2); Hemolysis Index 0
--- NOTE | 2021-08-21 22:57 | Emergency Department Report ---
ED General Adult HPI - General Chief complaint: Chest Pain Stated complaint: CHEST PAIN/HBP Time Seen by Provider: 08/21/21 22:13 Source: patient Mode of arrival: Ambulatory Limitations: No Limitations - History of Present Illness Initial comments: 46-year-old [place] female smoker with a known past medical history advanced hypertension who was recently admitted to a [facility] on July 26, 2021 for acute chest pain, depression, hypertensive emergency, NSTEMI presents emergency department complaining of a progression of her chest pain similar to the above have been her visit. She reports having chest pain for the last 4 to 5 years and having issues with severe hypertension for the last 7 to 10 years. Chest pain is near daily but the change is what brought her in today reports no fevers, chills, sweats. No hemoptysis hematemesis hematochezia, no chest pain, palpitation, nausea vomiting - Related Data Home Medications Medication Instructions Recorded Confirmed Last Taken Fexofenadine HCl [Odalis Allergy] 180 mg PO DAILY 04/19/17 03/22/18 04/18/17 Albuterol Sulfate [Ventolin HFA] 2 puff IH Q4H PRN 03/22/18 03/22/18 Unknown Baclofen [Lioresal] 10 mg PO DAILY 03/22/18 03/22/18 Unknown Ferrous Sulfate [Iron] 325 mg PO DAILY 03/22/18 03/22/18 Unknown Gabapentin [Neurontin] 300 mg PO BID 03/22/18 03/22/18 Unknown Spironolactone 50 mg PO 03/22/18 Unknown amLODIPine 10 mg PO DAILY 03/22/18 03/22/18 03/21/18 lisinopriL [Zestril TAB] 40 mg PO QDAY 03/22/18 03/22/18 03/21/18 Previous Rx's Medication Instructions Recorded Last Taken Type HYDROcodone/ACETAMINOPHEN 1 each PO 4XW #20 tablet 04/21/17 03/21/18 Rx [Hydrocodon-Acetaminophen 5-325] Omeprazole 20 mg PO DAILY #30 tablet. 04/21/17 03/21/18 Rx Valsartan/Hydrochlorothiazide 1 each PO DAILY #30 tablet 04/21/17 03/21/18 Rx [Diovan Hct 160-25 mg] carvediloL [Coreg] 25 mg PO BID tablet 04/21/17 03/21/18 Rx Cefuroxime Axetil [Ceftin] 250 mg PO Q12H #70 ml 03/22/18 Unknown Rx traMADoL [Ultram 50 MG tab] 50 mg PO Q6HR PRN #12 tablet 03/22/18 Unknown Rx traMADoL [Ultram] 50 mg PO Q4HR PRN #10 tablet 03/22/18 Unknown Rx traMADoL [Ultram 50 MG tab] 50 mg PO Q6HR PRN #8 tablet 11/24/20 Unknown Rx Cyclobenzaprine [Flexeril] 10 mg PO TID PRN #12 tablet 02/16/21 Unknown Rx Ibuprofen [Motrin 800 MG tab] 800 mg PO Q8HR PRN #20 tablet 02/16/21 Unknown Rx Allergies Allergy/AdvReac Type Severity Reaction Status Date / Time iodine Allergy Swelling Verified 11/24/20 01:02 latex Allergy Unknown Verified 11/24/20 01:02 iv dye Allergy Swelling Uncoded 01/02/13 00:50 shrimp Allergy Swelling Uncoded 01/02/13 00:50 ED Review of Systems ROS: Stated complaint: CHEST PAIN/HBP Other details as noted in HPI Comment: All other systems reviewed and negative ED Past Medical Hx - Past Medical History Hx Hypertension: Yes Hx Congestive Heart Failure: No Hx Diabetes: No Hx Arthritis: Yes Hx Psychiatric Treatment: Yes (Depression) Hx Asthma: Yes Hx COPD: No Hx HIV: No Additional medical history: irreg heart rate, neuropathy - Surgical History Additional Surgical History: csection hand surgery foot surgery. L4 L5 Right ankle - Social History Smoking Status: Light Tobacco Smoker - Medications Home Medications: Home Medications Medication Instructions Recorded Confirmed Last Taken Type Fexofenadine HCl [Odalis Allergy] 180 mg PO DAILY 04/19/17 03/22/18 04/18/17 History HYDROcodone/ACETAMINOPHEN 1 each PO 4XW #20 tablet 04/21/17 03/22/18 03/21/18 Rx [Hydrocodon-Acetaminophen 5-325] Omeprazole 20 mg PO DAILY #30 tablet. 04/21/17 03/22/18 03/21/18 Rx Valsartan/Hydrochlorothiazide 1 each PO DAILY #30 tablet 04/21/17 03/22/18 03/21/18 Rx [Diovan Hct 160-25 mg] carvediloL [Coreg] 25 mg PO BID tablet 04/21/17 03/22/18 03/21/18 Rx Albuterol Sulfate [Ventolin HFA] 2 puff IH Q4H PRN 03/22/18 03/22/18 Unknown History Baclofen [Lioresal] 10 mg PO DAILY 03/22/18 03/22/18 Unknown History Cefuroxime Axetil [Ceftin] 250 mg PO Q12H #70 ml 03/22/18 Unknown Rx Ferrous Sulfate [Iron] 325 mg PO DAILY 03/22/18 03/22/18 Unknown History Gabapentin [Neurontin] 300 mg PO BID 03/22/18 03/22/18 Unknown History Spironolactone 50 mg PO 03/22/18 Unknown History amLODIPine 10 mg PO DAILY 03/22/18 03/22/18 03/21/18 History lisinopriL [Zestril TAB] 40 mg PO QDAY 03/22/18 03/22/18 03/21/18 History traMADoL [Ultram 50 MG tab] 50 mg PO Q6HR PRN #12 tablet 03/22/18 03/22/18 Unknown Rx traMADoL [Ultram] 50 mg PO Q4HR PRN #10 tablet 03/22/18 Unknown Rx traMADoL [Ultram 50 MG tab] 50 mg PO Q6HR PRN #8 tablet 11/24/20 Unknown Rx Cyclobenzaprine [Flexeril] 10 mg PO TID PRN #12 tablet 02/16/21 Unknown Rx Ibuprofen [Motrin 800 MG tab] 800 mg PO Q8HR PRN #20 tablet 02/16/21 Unknown Rx ED Physical Exam - General Limitations: No Limitations General appearance: alert, in no apparent distress - Head Head exam: Present: atraumatic, normocephalic - Eye Eye exam: Present: normal appearance, PERRL - ENT ENT exam: Present: normal exam, mucous membranes moist - Neck Neck exam: Present: normal inspection - Respiratory Respiratory exam: Present: normal lung sounds bilaterally. Absent: respiratory distress - Cardiovascular Cardiovascular Exam: Present: regular rate, normal rhythm. Absent: systolic murmur, diastolic murmur, rubs, gallop - GI/Abdominal GI/Abdominal exam: Present: soft, normal bowel sounds - Extremities Exam Extremities exam: Present: normal inspection - Back Exam Back exam: Present: normal inspection - Neurological Exam Neurological exam: Present: alert, oriented X3 - Psychiatric Psychiatric exam: Present: normal affect, normal mood - Skin Skin exam: Present: warm, dry, intact, normal color. Absent: rash ED Course Vital Signs 08/21/21 17:12 Temperature 97.9 F Pulse Rate 74 Respiratory 18 Rate Blood Pressure 194/112 O2 Sat by Pulse 100 Oximetry ED Medical Decision Making - Lab Data Result diagrams: 08/21/21 17:40 08/21/21 17:40 Critical care attestation.: If time is entered above; I have spent that time in minutes in the direct care of this critically ill patient, excluding procedure time. ED Disposition Condition: Stable
[2021-08-21] MEDS ORDERED: HYDROcodone/ACETAMINOPHEN 5-325 MG TAB PO STA (23:02)
[2021-08-22] MEDS ORDERED: hydrALAZINE 20 MG/1 ML INJ IV ONE (00:35)
[2021-08-22] MEDS ORDERED: NITROGLYCERIN 2% OINT 1 GM TP STA (01:09)
[2021-08-22] MEDS ORDERED: traMADol 50 MG TAB PO PRN (01:12)
[2021-08-22] MEDS ORDERED: MAGNESIUM HYDROXIDE (MOM) ORAL LIQD UDC PO PRN (01:12)
[2021-08-22] MEDS ORDERED: MORPHINE 4 MG/1 ML INJ IV PRN (01:12)
[2021-08-22] MEDS ORDERED: ONDANSETRON 4 MG/2 ML INJ IV PRN (01:12)
[2021-08-22] MEDS ORDERED: ACETAMINOPHEN 325 MG TAB PO PRN ×2 (01:12)
[2021-08-22] MEDS ORDERED: MORPHINE 2 MG/1 ML INJ IV PRN (01:12)
[2021-08-22] MEDS ORDERED: NITROGLYCERIN 0.4 MG TAB SUBL SL PRN (01:12)
--- NOTE | 2021-08-22 01:23 | History and Physical Report ---
History of Present Illness Date of examination: 08/22/21 Date of admission: 08/22/2021 Chief complaint: Chest pain History of present illness: 46-year-old female with known history of hypertension, depression, history of NSTEMI seen in the emergency room today complaining of chest pain for about 5 days. Patient was recently admitted to [facility] on July 22, 2021 for acute chest pain. Patient indicates she has a strong family history of heart disease. Chest pain has been getting progressively worse over the past few days. She reports that she has had intermittent chest pain over the years has gotten worse today and therefore reported to the emergency room for further evaluation. There has been no known relieving or exacerbating factor for chest pain Patient denies any fever or chills, no nausea vomiting and no abdominal pain. Work-up in the emergency room today for labs has been unremarkable. EKG and chest x-ray were also unremarkable. Patient being admitted for chest pain evaluation. Past History Past Medical History: arthritis, diabetes, other (rreg heart rate, neuropathy,Depression,Asthma,) Past Surgical History: Other (csection hand surgery foot surgery. L4 L5 Right ankle) Social history: smoking (Occasional Tobacco use) Family history: no significant family history Medications and Allergies Allergies Allergy/AdvReac Type Severity Reaction Status Date / Time iodine Allergy Swelling Verified 08/22/21 05:54 latex Allergy Unknown Verified 08/22/21 05:54 iv dye Allergy Swelling Uncoded 08/22/21 05:54 shrimp Allergy Swelling Uncoded 08/22/21 05:54 Home Medications Medication Instructions Recorded Confirmed Last Taken Type Fexofenadine HCl [Odalis Allergy] 180 mg PO DAILY 04/19/17 03/22/18 04/18/17 History HYDROcodone/ACETAMINOPHEN 1 each PO 4XW #20 tablet 04/21/17 03/22/18 03/21/18 Rx [Hydrocodon-Acetaminophen 5-325] Omeprazole 20 mg PO DAILY #30 tablet. 04/21/17 03/22/18 03/21/18 Rx Valsartan/Hydrochlorothiazide 1 each PO DAILY #30 tablet 04/21/17 03/22/18 03/21/18 Rx [Diovan Hct 160-25 mg] carvediloL [Coreg] 25 mg PO BID tablet 04/21/17 03/22/18 03/21/18 Rx Albuterol Sulfate [Ventolin HFA] 2 puff IH Q4H PRN 03/22/18 03/22/18 Unknown History Baclofen [Lioresal] 10 mg PO DAILY 03/22/18 03/22/18 Unknown History Cefuroxime Axetil [Ceftin] 250 mg PO Q12H #70 ml 03/22/18 Unknown Rx Ferrous Sulfate [Iron] 325 mg PO DAILY 03/22/18 03/22/18 Unknown History Gabapentin [Neurontin] 300 mg PO BID 03/22/18 03/22/18 Unknown History Spironolactone 50 mg PO 03/22/18 Unknown History amLODIPine 10 mg PO DAILY 03/22/18 03/22/18 03/21/18 History lisinopriL [Zestril TAB] 40 mg PO QDAY 03/22/18 03/22/18 03/21/18 History traMADoL [Ultram 50 MG tab] 50 mg PO Q6HR PRN #12 tablet 03/22/18 03/22/18 Unknown Rx traMADoL [Ultram] 50 mg PO Q4HR PRN #10 tablet 03/22/18 Unknown Rx traMADoL [Ultram 50 MG tab] 50 mg PO Q6HR PRN #8 tablet 11/24/20 Unknown Rx Cyclobenzaprine [Flexeril] 10 mg PO TID PRN #12 tablet 02/16/21 Unknown Rx Ibuprofen [Motrin 800 MG tab] 800 mg PO Q8HR PRN #20 tablet 02/16/21 Unknown Rx Active Meds: Active Medications Acetaminophen (Acetaminophen 325 Mg Tab) 650 mg PO Q4H PRN PRN Reason: Pain MILD(1-3)/Fever >100.5/REY Acetaminophen (Acetaminophen 325 Mg Tab) 650 mg PO Q6H PRN PRN Reason: Pain, Mild (1-3) Aspirin (Aspirin Ec 325 Mg Tab) 325 mg PO QDAY MERLENE Magnesium Hydroxide (Magnesium Hydroxide (Mom) Oral Liqd Udc) 30 ml PO Q4H PRN PRN Reason: Constipation Morphine Sulfate (Morphine 2 Mg/1 Ml Inj) 2 mg IV Q4H PRN PRN Reason: Pain, Moderate (4-6) Morphine Sulfate (Morphine 4 Mg/1 Ml Inj) 4 mg IV Q4H PRN PRN Reason: Pain , Severe (7-10) Morphine Sulfate (Morphine 4 Mg/1 Ml Inj) 2 mg IV Q5MIN PRN PRN Reason: Chest Pain unrelieved by NTG Nitroglycerin (Nitroglycerin 0.4 Mg Tab Subl) 0.4 mg SL Q5M PRN PRN Reason: Chest Pain Ondansetron HCl (Ondansetron 4 Mg/2 Ml Inj) 4 mg IV Q8H PRN PRN Reason: Nausea And Vomiting Sodium Chloride (Sodium Chloride 0.9% 10 Ml Flush Syringe) 10 ml IV BID MERLENE Sodium Chloride (Sodium Chloride 0.9% 10 Ml Flush Syringe) 10 ml IV PRN PRN PRN Reason: LINE FLUSH Sodium Chloride (Sodium Chloride 0.9% 10 Ml Flush Syringe) 10 ml IV PRN PRN PRN Reason: LINE FLUSH Tramadol HCl (Tramadol 50 Mg Tab) 50 mg PO Q6H PRN PRN Reason: Pain, Moderate (4-6) Review of Systems Constitutional: no fever, no chills Ears, nose, mouth and throat: no nasal congestion, no sore throat Cardiovascular: chest pain, no palpitations Respiratory: no cough, no shortness of breath Gastrointestinal: no nausea, no vomiting, no diarrhea Genitourinary Female: no pelvic pain, no flank pain, no dysuria Musculoskeletal: no neck pain, no low back pain Integumentary: no rash, no pruritis Neurological: no headaches, no confusion Psychiatric: no anxiety, no depression Endocrine: no polyphagia, no polydipsia, no polyuria, no nocturia Exam - Constitutional Vitals: Temp Pulse Resp BP Pulse Ox 98.6 F 79 18 202/128 99 08/21/21 23:09 08/22/21 01:14 08/22/21 01:00 08/22/21 01:14 08/22/21 01:00 General appearance: Present: no acute distress, well-nourished - EENT Eyes: Present: PERRL, EOM intact. Absent: scleral icterus ENT: hearing intact, clear oral mucosa, dentition normal - Neck Neck: Present: supple, normal ROM - Respiratory Respiratory effort: normal Respiratory: bilateral: CTA - Cardiovascular Rhythm: regular Heart Sounds: Present: S1 & S2. Absent: gallop, systolic murmur, diastolic murmur, rub, click - Extremities Extremities: no ischemia, pulses intact, pulses symmetrical, No edema, normal temperature, Full ROM Peripheral Pulses: within normal limits - Abdominal General gastrointestinal: Present: soft, non-tender, non-distended, normal bowel sounds. Absent: mass - Integumentary Integumentary: Present: clear, warm, dry, normal turgor. Absent: rash - Musculoskeletal Musculoskeletal: strength equal bilaterally - Psychiatric Psychiatric: appropriate mood/affect, intact judgment & insight, memory intact, cooperative - Neurologic Neurologic: CNII-XII intact, no focal deficits, moves all extremities HEART Score - HEART Score Troponin: Troponin T < 0.010 ng/mL (0.00-0.029) 08/21/21 21:48 Results - Labs CBC & Chem 7: 08/21/21 17:40 08/22/21 05:26 Labs: Abnormal lab results 08/21/21 08/21/21 Range/Units 17:40 17:40 MCV 70 L (79-97) fl MCH 22 L (28-32) pg RDW 18.1 H (13.2-15.2) % Glucose 160 H (65-100) mg/dL Assessment and Plan Assessment: 1. Chest pain 2. Hypertension- Uncontrolled. 3. History of NSTEMI Plan: 1. Patient admitted and placed on telemetry. 2. We will check serial cardiac enzymes. 3. Patient commenced on daily aspirin, sublingual nitroglycerin and IV morphine as needed for chest pain. 4. We will schedule for echocardiogram and stress test. 5. Consult placed to cardiology for further evaluation and recommendations. DVT Prophylaxis: Subcutaneous heparin. Code Status: Full code
[2021-08-22] MEDS ORDERED: hydrALAZINE 20 MG/1 ML INJ IV PRN (02:37)
[2021-08-22] MEDS: MORPHINE 4 MG/1 ML INJ IV PRN ×4 (03:17→21:02)
[2021-08-22 06:05] LABS: BUN/Creatinine Ratio 15; Blood Urea Nitrogen 12 mg/dL (7-17); Calcium 8.9 mg/dL (8.4-10.2); Hemolysis Index 40
[2021-08-22] MEDS: HEPARIN 5,000 UNIT/1 ML VIAL SUB-Q SCH ×3 (09:37→21:03)
[2021-08-22] MEDS ORDERED: ALBUTEROL 8.5 GM MDI INHALATION IH PRN (09:43)
[2021-08-22] MEDS ORDERED: CYCLOBENZAPRINE 10 MG TAB PO PRN (09:43)
[2021-08-22] MEDS ORDERED: NON-FORMULARY EACH (Valsartan/Hydrochlorothiazide [Diovan Hct 160-25 Mg] 1 EACH Tablet) PO SCH (10:00)
[2021-08-22] MEDS ORDERED: ALBUTEROL 2.5 MG/3 ML NEBU IH PRN (12:00)
--- NOTE | 2021-08-22 13:09 | Consultation ---
History of Present Illness Consult date: 08/22/21 Consult reason: chest pain History of present illness: Patient is a 46-year-old woman with chronic hypertension who presented to the hospital with atypical, poorly characterized chest pain. Her ECG was sinus rhythm with left ventricular hypertrophy voltage criteria, but no ST or T wave abnormalities of ischemia or infarction. The chest x-ray was normal-sized cardiac silhouette and clear lungs. Serial troponin levels x3 were negative. Cardiology consultation was requested for further evaluation. We found that this patient had been hospitalized just last month at a hospital in [place] where she was visiting. She was treated for uncontrolled hypertension and atypical chest pain. Evaluation in that hospital ultimately resulted in a cardiac catheterization last month which documented no significant coronary artery disease. She had normal left ventricular systolic function with ejection fraction 60 to 65% on echocardiogram. Patient was recommended for risk factor modification. Past History Past Medical History: arthritis, diabetes, hypertension Past Surgical History: Other (csection hand surgery foot surgery. L4 L5 Right ankle) Social history: smoking (Occasional Tobacco use) Family history: no significant family history Medications and Allergies Allergies Allergy/AdvReac Type Severity Reaction Status Date / Time iodine Allergy Swelling Verified 08/22/21 05:54 latex Allergy Unknown Verified 08/22/21 05:54 iv dye Allergy Swelling Uncoded 08/22/21 05:54 shrimp Allergy Swelling Uncoded 08/22/21 05:54 Home Medications Medication Instructions Recorded Confirmed Last Taken Type Fexofenadine HCl [Odalis Allergy] 180 mg PO DAILY 04/19/17 03/22/18 04/18/17 History HYDROcodone/ACETAMINOPHEN 1 each PO 4XW #20 tablet 04/21/17 03/22/18 03/21/18 Rx [Hydrocodon-Acetaminophen 5-325] Omeprazole 20 mg PO DAILY #30 tablet. 04/21/17 03/22/18 03/21/18 Rx Valsartan/Hydrochlorothiazide 1 each PO DAILY #30 tablet 04/21/17 03/22/18 03/21/18 Rx [Diovan Hct 160-25 mg] carvediloL [Coreg] 25 mg PO BID tablet 04/21/17 03/22/18 03/21/18 Rx Albuterol Sulfate [Ventolin HFA] 2 puff IH Q4H PRN 03/22/18 03/22/18 Unknown History Baclofen [Lioresal] 10 mg PO DAILY 03/22/18 03/22/18 Unknown History Cefuroxime Axetil [Ceftin] 250 mg PO Q12H #70 ml 03/22/18 Unknown Rx Ferrous Sulfate [Iron] 325 mg PO DAILY 03/22/18 03/22/18 Unknown History Gabapentin [Neurontin] 300 mg PO BID 03/22/18 03/22/18 Unknown History Spironolactone 50 mg PO 03/22/18 Unknown History amLODIPine 10 mg PO DAILY 03/22/18 03/22/18 03/21/18 History lisinopriL [Zestril TAB] 40 mg PO QDAY 03/22/18 03/22/18 03/21/18 History traMADoL [Ultram 50 MG tab] 50 mg PO Q6HR PRN #12 tablet 03/22/18 03/22/18 Unknown Rx traMADoL [Ultram] 50 mg PO Q4HR PRN #10 tablet 03/22/18 Unknown Rx traMADoL [Ultram 50 MG tab] 50 mg PO Q6HR PRN #8 tablet 11/24/20 Unknown Rx Cyclobenzaprine [Flexeril] 10 mg PO TID PRN #12 tablet 02/16/21 Unknown Rx Ibuprofen [Motrin 800 MG tab] 800 mg PO Q8HR PRN #20 tablet 02/16/21 Unknown Rx Active Meds: Active Medications Acetaminophen (Acetaminophen 325 Mg Tab) 650 mg PO Q4H PRN PRN Reason: Pain MILD(1-3)/Fever >100.5/REY Last Admin: 08/22/21 10:00 Dose: 650 mg Albuterol (Albuterol 2.5 Mg/3 Ml Nebu) 2.5 mg IH Q4HRT PRN PRN Reason: Shortness Of Breath Aspirin (Aspirin Ec 325 Mg Tab) 325 mg PO QDAY [facility] Carvedilol (Carvedilol 25 Mg Tab) 25 mg PO BID MERLENE Ferrous Sulfate (Ferrous Sulfate 325 Mg Tab) 325 mg PO DAILY MERLENE Gabapentin (Gabapentin 300 Mg Cap) 300 mg PO BID MERLENE Heparin Sodium (Porcine) (Heparin 5,000 Unit/1 Ml Vial) 5,000 unit SUB-Q Q8HR [facility] Last Admin: 08/22/21 09:37 Dose: 5,000 unit Hydralazine HCl (Hydralazine 20 Mg/1 Ml Inj) 10 mg IV Q4HR PRN PRN Reason: Hypertension Last Admin: 08/22/21 06:08 Dose: 10 mg Hydrochlorothiazide (Hydrochlorothiazide 25 Mg Tab) 25 mg PO QDAY [facility] Magnesium Hydroxide (Magnesium Hydroxide (Mom) Oral Liqd Udc) 30 ml PO Q4H PRN PRN Reason: Constipation Morphine Sulfate (Morphine 2 Mg/1 Ml Inj) 2 mg IV Q4H PRN PRN Reason: Pain, Moderate (4-6) Morphine Sulfate (Morphine 4 Mg/1 Ml Inj) 4 mg IV Q4H PRN PRN Reason: Pain , Severe (7-10) Last Admin: 08/22/21 08:50 Dose: 4 mg Morphine Sulfate (Morphine 4 Mg/1 Ml Inj) 2 mg IV Q5MIN PRN PRN Reason: Chest Pain unrelieved by NTG Nitroglycerin (Nitroglycerin 0.4 Mg Tab Subl) 0.4 mg SL Q5M PRN PRN Reason: Chest Pain Ondansetron HCl (Ondansetron 4 Mg/2 Ml Inj) 4 mg IV Q8H PRN PRN Reason: Nausea And Vomiting Sodium Chloride (Sodium Chloride 0.9% 10 Ml Flush Syringe) 10 ml IV BID MERLENE Sodium Chloride (Sodium Chloride 0.9% 10 Ml Flush Syringe) 10 ml IV PRN PRN PRN Reason: LINE FLUSH Tramadol HCl (Tramadol 50 Mg Tab) 50 mg PO Q6H PRN PRN Reason: Pain, Moderate (4-6) Valsartan (Valsartan 160mg Tab) 160 mg PO QDAY [facility] Review of Systems Cardiovascular: chest pain, shortness of breath, no orthopnea, no palpitations, no rapid/irregular heart beat, no edema, no syncope, no lightheadedness Physical Examination Vital Signs Temp Pulse Resp BP Pulse Ox 97.9 F 74 18 194/112 100 08/21/21 17:12 08/21/21 17:12 08/21/21 17:12 08/21/21 17:12 08/21/21 17:12 General appearance: no acute distress HEENT: Positive: PERRL Neck: Positive: neck supple Cardiac: Positive: Reg Rate and Rhythm Lungs: Positive: Decreased Breath Sounds Neuro: Positive: Grossly Intact Abdomen: Positive: Soft Female genitourinary: deferred Skin: Positive: Clear Extremities: Absent: edema Results 08/21/21 17:40 08/22/21 05:26 Cardiac Enzymes 08/21/21 Range/Units 17:40 AST 12 (5-40) units/L Coagulation 08/21/21 Range/Units 17:40 PT 13.4 (12.2-14.9) Sec. INR 0.92 (0.87-1.13) APTT 28.6 (24.2-36.6) Sec. CBC 08/21/21 Range/Units 17:40 WBC 8.9 (4.5-11.0) K/mm3 RBC 4.86 (3.65-5.03) M/mm3 Hgb 10.6 (10.1-14.3) gm/dl Hct 34.0 (30.3-42.9) % Plt Count 265 (140-440) K/mm3 Lymph # (Auto) 2.2 (1.2-5.4) K/mm3 [place] # (Auto) 0.5 (0.0-0.8) K/mm3 Eos # (Auto) 0.2 (0.0-0.4) K/mm3 Baso # (Auto) 0.0 (0.0-0.1) K/mm3 Comprehensive Metabolic Panel 08/21/21 08/22/21 Range/Units 17:40 05:26 Sodium 139 137 (137-145) mmol/L Potassium 4.3 4.2 (3.6-5.0) mmol/L Chloride 104.2 105.1 (98-107) mmol/L Carbon Dioxide 27 20 L D (22-30) mmol/L BUN 12 12 (7-17) mg/dL Creatinine 0.9 0.8 (0.6-1.2) mg/dL Glucose 160 H 146 H (65-100) mg/dL Calcium 9.3 8.9 (8.4-10.2) mg/dL AST 12 (5-40) units/L ALT 12 (7-56) units/L Alkaline Phosphatase 68 (35-129) units/L Total Protein 7.6 (6.3-8.2) g/dL Albumin 4.2 (3.9-5) g/dL EKG interpretations - Telemetry EKG Rhythm: Sinus Rhythm (With left ventricular hypertrophy by voltage criteria, no acute ST or T wave abnormality) Assessment and Plan - Patient Problems (1) Chest pain Current Visit: No Status: Acute Plan to address problem: Patient with history of chronic hypertension, admitted with atypical chest pain. Just last month, she had extensive cardiac chest pain work-up including a cardiac catheterization that showed no significant coronary artery disease, no further cardiac chest pain work-up is indicated at the current time. We will defer to internal medicine for further management and evaluation of noncardiac chest pain as indicated. We will sign off. (2) Uncontrolled hypertension Current Visit: Yes Status: Acute Plan to address problem: For patient's uncontrolled hypertension, I would recommend addition of Procardia XL 60 mg to regimen.
[2021-08-22] MEDS: GABAPENTIN 300 MG CAP PO SCH ×2 (14:02→21:03)
[2021-08-22] MEDS: FERROUS SULFATE 325 MG TAB PO SCH (14:02)
[2021-08-22] MEDS: carvediloL 25 MG TAB PO SCH ×2 (14:05→21:03)
[2021-08-22] MEDS: hydroCHLOROthiazide 25 MG TAB PO SCH (14:14)
--- NOTE | 2021-08-22 14:14 | Event Note ---
Date: 08/22/21 Patient seen and examined history is incoherent. Nevertheless she appears very depressed teary throughout the conversation. I am unsure as to what medications she is on blood pressure will significantly elevated with systolic in the 190s earlier this morning. We will need to optimize her blood pressure prior to discharge. Psych consulted to assist with depression also social work is consulted.
[2021-08-22] MEDS: VALSARTAN 160MG TAB PO SCH (14:15)
[2021-08-22] MEDS: NIFEdipine XL 60 MG TAB PO SCH (14:16)
[2021-08-23 05:33] LABS: Basophils % (Auto) 0.4 % (0.0-1.8); Eosinophils # (Auto) 0.4 K/mm3 (0.0-0.4); Eosinophils % (Auto) 5.1 % (0.0-4.3); Lymphocytes # (Auto) 1.9 K/mm3 (1.2-5.4); Lymphocytes % (Auto) 23.2 % (13.4-35.0); Mean Corpuscular HGB Conc 30 % (30-34); Mean Corpuscular Volume 71 fl (79-97); Monocytes # (Auto) 0.6 K/mm3 (0.0-0.8); Monocytes % (Auto) 7.5 % (0.0-7.3); Platelet Count 238 K/mm3 (140-440); Red Blood Count 4.88 M/mm3 (3.65-5.03); Red Cell Distribution Width 18.1 % (13.2-15.2)
[2021-08-23 05:50] LABS: BUN/Creatinine Ratio 18; Blood Urea Nitrogen 16 mg/dL (7-17); Calcium 9.5 mg/dL (8.4-10.2); Hemolysis Index 2
[2021-08-23 05:59] LABS: Hematocrit 34.4 % (30.3-42.9); Hemoglobin 10.4 gm/dl (10.1-14.3)
[2021-08-23] MEDS: HEPARIN 5,000 UNIT/1 ML VIAL SUB-Q SCH (06:22)
[2021-08-23] MEDS: MORPHINE 4 MG/1 ML INJ IV PRN (08:47)
--- NOTE | 2021-08-23 09:32 | Discharge Summary ---
Providers - Providers Date of Admission: 08/22/21 01:13 Attending physician: OMAIRA MARTI MD 08/22/21 Consult to Cardiac Rehabilitation [CONS] Routine Reason For Exam: Phase I 08/22/21 01:13 Consult to Cardiology [CONS] Routine Consulting Provider: LEE MCNULTY Reason For Exam: chest pain 08/22/21 09:42 Consult to Case Management [CONS] Routine Services Needed at Discharge: Corporate Licensed Broker Notified:: NO Additional Physician Instructions: COMPTOMETRIST Consult to Physician [CONS] Routine Comment: Consulting Provider: REBECCA BENITEZ Physician Instructions: Reason For Exam: DEPRESSION Hospitalization Reason for admission: Chest pain Condition: Stable Hospital course: 46-year-old female with known history of hypertension, depression, history of NSTEMI seen in the emergency room today complaining of chest pain for about 5 days. Patient was recently admitted to [facility] on July 22, 2021 for acute chest pain. Patient indicates she has a strong family history of heart disease. Chest pain has been getting progressively worse over the past few days. She reports that she has had intermittent chest pain over the years has gotten worse today and therefore reported to the emergency room for further evaluation. There has been no known relieving or exacerbating factor for chest pain Patient denies any fever or chills, no nausea vomiting and no abdominal pain. Work-up in the emergency room today for labs has been unremarkable. EKG and chest x-ray were also unremarkable. Patient being admitted for chest pain evaluation. On further examination of the patient who has a history of arthritis, diabetes, neuropathy depression and asthma she was very emotional and tearful. She has been under significant life stress. Psych was consulted to see the patient and establish care for the patient. Review of her record shows that she was seen at [facility] as noted above and from cardiology discussion and determination the patient had a cardiac catheterization which was documented as no significant coronary artery disease normal left ventricular systolic function at 60 to 65% on echocardiogram. The ship ceiler recommended that patient should have Procardia as one of her blood pressure medication. She was also noted to have significantly elevated blood pressure which has improved since today. She is clinically stable to be discharged resources for management of stress has been given to her and also an outpatient referral to psychiatry has also been given to her. She verbalized understanding. She is also currently on route to get her disability. Past History Past Medical History: arthritis, diabetes, other (rreg heart rate, neuropathy,Depression,Asthma,) Past Surgical History: Other (csection hand surgery foot surgery. L4 L5 Right ankle) Social history: smoking (Occasional Tobacco use) (1) atypical chest pain likely secondary to costochondritis (2) tobacco dependency 15 minutes counseling provided to the patient on need to quit tobacco use she verbalized understanding. She states she has quit in the last few days. (3) uncontrolled hypertension 4) morbid obesity Counseling also provided to the patient on need for weight loss she verbalized understanding. She reports that is secondary to right ankle injury but will continue to work with outpatient physical therapist to improve. (5) depression Disposition: 01 HOME / SELF CARE / HOMELESS Final Discharge Diagnosis (Prints w/discharge instructions): (1) atypical chest pain likely secondary to costochondritis. (2) tobacco dependency. (3) uncontrolled hypertension. 4) morbid obesity. 5)depression. 4) morbid obesity Time spent for discharge: 35-minute Core Measure Documentation - Palliative Care Palliative Care/ Comfort Measures: Not Applicable - Core Measures Any of the following diagnoses?: none Exam - Physical Exam Narrative exam: VITAL SIGNS: Reviewed. GENERAL: The patient appears normally developed, morbidly obese vital signs as documented. HEAD: No signs of head trauma. EYES: Pupils are equal. Extraocular motions intact. EARS: Hearing grossly intact. MOUTH: Oropharynx is normal. NECK: No adenopathy, no JVD. CHEST: Chest with clear breath sounds bilaterally. No wheezes, rales, or rhonchi. CARDIAC: Regular rate and rhythm. S1 and S2, without murmurs, gallops, or rubs. VASCULAR: No Edema. Peripheral pulses normal and equal in all extremities. ABDOMEN: Soft, non tender and non distended. No rebound or guarding, and no masses palpated. Bowel Sounds normal. MUSCULOSKELETAL: Good range of motion of all major joints. Extremities without clubbing, cyanosis or edema. NEUROLOGIC EXAM: Alert and oriented x 3 No focal sensory or strength deficits. Speech normal. Follows commands. PSYCHIATRIC: Mood normal. SKIN: detail exam as documented in skin assessment - Constitutional Vitals: Temp Pulse Resp BP Pulse Ox 98.4 F 66 16 135/78 96 08/23/21 03:46 08/23/21 03:46 08/23/21 03:46 08/23/21 03:46 08/23/21 03:46 Plan Activity: advance as tolerated, fall precautions Diet: low fat Special Instructions: record daily weights, record daily BP diary, record blood sugar diary Follow up with: MAXIMO,WESLEY HURLEY [Other] - 7 Days NUVIA EDWARDS MD [Staff Physician] - 7 Days REBECCA BENITEZ MD [Staff Physician] - 7 Days Prescriptions: carvediloL [Coreg] 25 mg PO BID #60 tablet Valsartan [Diovan] 160 mg PO QDAY #30 tablet Ferrous Sulfate [Iron 325 MG] 325 mg PO DAILY #30 tab NIFEdipine XL [Procardia Xl] 60 mg PO QDAY #30 tablet
[2021-08-23] MEDS: carvediloL 25 MG TAB PO SCH (09:44)
[2021-08-23] MEDS: GABAPENTIN 300 MG CAP PO SCH (09:44)
[2021-08-23] MEDS: NIFEdipine XL 60 MG TAB PO SCH (09:45)
[2021-08-23] MEDS: hydroCHLOROthiazide 25 MG TAB PO SCH (09:45)
[2021-08-23] MEDS: VALSARTAN 160MG TAB PO SCH (09:45)
[2021-08-23] MEDS: FERROUS SULFATE 325 MG TAB PO SCH (09:45)
[2021-08-23] MEDS ORDERED: ASPIRIN EC 325 MG TAB PO SCH (10:00)
--- NOTE | 2021-08-23 14:18 | Consultation ---
History of Present Illness - Reason for Consult Consult date: 08/23/21 Reason for consult: MHE - History of Present Psychiatric Illness HPI: 46-year-old [place] female smoker with a known past medical history advanced hypertension who was recently admitted to a [facility] on July 26, 2021 for acute chest pain, depression, hypertensive emergency, NSTEMI presents emergency department complaining of a progression of her chest pain similar to the above have been her visit. She reports having chest pain for the last 4 to 5 years and having issues with severe hypertension for the last 7 to 10 years. Chest pain is near daily but the change is what brought her in today reports no fevers, chills, sweats. No hemoptysis hematemesis hematochezia, no chest pain, palpitation, nausea vomiting. The patient was seen today. She says she presented to the ER for chest pain. The patient says no one was listening to her and she became upset. She is calm and cooperative today. She is polite. The patient says she has a history of depression. She says she's dealing with a lot at home, including the of her son by MVC. She says she sees the [facility] and is on zoloft and trazodone. The patient denies SI/HI. She says "I was told if you commit suicide you are going to hell, so no I would not do that." She denies hallucinations of any kind. PAST PSYCHIATRIC HISTORY: Diagnoses: Depression Suicide attempts or Self-harm behavior: Denies Prior psychiatric hospitalizations: Denies Substance Abuse history: Denies Previous psychiatric medications tried: Zoloft, Trazodone Outpatient treatment: [facility] PAST MEDICAL HISTORY: NSTEMI, HTN Family Psychiatric History: None reported or documented SOCIAL HISTORY Marital Status: Single Living Arrangements: with family Employment Status: employed Access to guns/weapons: Denies Education: high school History of Abuse:Denies Legal History: Denies REVIEW OF SYSTEMS Constitutional: Negative for weight loss ENT: Negative for stridor Respiratory: Negative for cough or hemoptysis All other systems reviewed and are negative MENTAL STATUS EXAMINATION General Appearance and Behavior: Age appropriate, wearing appropriate clothes, cooperative, polite with questioning, good eye contact, calm Cooperation: cooperative Psychomotor Behavior: fidgety, rocking back and forth Mood: okay Affect and affective range: congruent with stated mood Thought Process: Goal directed Thought Content: Reality oriented Speech: Normal volume, Regular rate and rhythm Suicidal Ideation: Denies Homicidal Ideation: Denies Hallucination: Denies Delusions: None elicited Impulse Control: Limited Insight and Judgment: Limited Memory: Intact Attention:attentive Orientation: Alert and oriented Diagnoses: Hx of Major Depressive Disorder Treatment Plan Continue home meds as prescribed by outpatient provider Sitter: Defer to primary Medical: Per primary Disposition: Do not recommend acute psychiatric inpatient treatment Will sign off. Thanks Case staffed with Dr. Moore Medications and Allergies Allergies Allergy/AdvReac Type Severity Reaction Status Date / Time iodine Allergy Swelling Verified 08/22/21 05:54 latex Allergy Unknown Verified 08/22/21 05:54 iv dye Allergy Swelling Uncoded 08/22/21 05:54 shrimp Allergy Swelling Uncoded 08/22/21 05:54 Home Medications Medication Instructions Recorded Confirmed Last Taken Type Fexofenadine HCl [Odalis Allergy] 180 mg PO DAILY 04/19/17 03/22/18 04/18/17 History Omeprazole 20 mg PO DAILY #30 tablet. 04/21/17 03/22/18 03/21/18 Rx Albuterol Sulfate [Ventolin HFA] 2 puff IH Q4H PRN 03/22/18 03/22/18 Unknown History Gabapentin 300 mg PO BID 03/22/18 03/22/18 Unknown History Ferrous Sulfate [Iron 325 MG] 325 mg PO DAILY #30 tab 08/23/21 Unknown Rx NIFEdipine XL [Procardia Xl] 60 mg PO QDAY #30 tablet 08/23/21 Unknown Rx Valsartan [Diovan] 160 mg PO QDAY #30 tablet 08/23/21 Unknown Rx carvediloL [Coreg] 25 mg PO BID #60 tablet 08/23/21 Unknown Rx Active Meds: Active Medications Acetaminophen (Acetaminophen 325 Mg Tab) 650 mg PO Q4H PRN PRN Reason: Pain MILD(1-3)/Fever >100.5/REY Last Admin: 08/22/21 10:00 Dose: 650 mg Albuterol (Albuterol 2.5 Mg/3 Ml Nebu) 2.5 mg IH Q4HRT PRN PRN Reason: Shortness Of Breath Aspirin (Aspirin Ec 325 Mg Tab) 325 mg PO QDAY MERLENE Last Admin: 08/23/21 09:45 Dose: 325 mg Carvedilol (Carvedilol 25 Mg Tab) 25 mg PO BID [facility] Last Admin: 08/23/21 09:44 Dose: 25 mg Ferrous Sulfate (Ferrous Sulfate 325 Mg Tab) 325 mg PO DAILY [facility] Last Admin: 08/23/21 09:45 Dose: 325 mg Gabapentin (Gabapentin 300 Mg Cap) 300 mg PO BID [facility] Last Admin: 08/23/21 09:44 Dose: 300 mg Heparin Sodium (Porcine) (Heparin 5,000 Unit/1 Ml Vial) 5,000 unit SUB-Q Q8HR [facility] Last Admin: 08/23/21 06:22 Dose: Not Given Hydralazine HCl (Hydralazine 20 Mg/1 Ml Inj) 10 mg IV Q4HR PRN PRN Reason: Hypertension Last Admin: 08/22/21 06:08 Dose: 10 mg Hydrochlorothiazide (Hydrochlorothiazide 25 Mg Tab) 25 mg PO QDAY [facility] Last Admin: 08/23/21 09:45 Dose: 25 mg Magnesium Hydroxide (Magnesium Hydroxide (Mom) Oral Liqd Udc) 30 ml PO Q4H PRN PRN Reason: Constipation Morphine Sulfate (Morphine 2 Mg/1 Ml Inj) 2 mg IV Q4H PRN PRN Reason: Pain, Moderate (4-6) Morphine Sulfate (Morphine 4 Mg/1 Ml Inj) 4 mg IV Q4H PRN PRN Reason: Pain , Severe (7-10) Last Admin: 08/23/21 08:47 Dose: 4 mg Morphine Sulfate (Morphine 4 Mg/1 Ml Inj) 2 mg IV Q5MIN PRN PRN Reason: Chest Pain unrelieved by NTG Nifedipine (Nifedipine Xl 60 Mg Tab) 60 mg PO QDAY [facility] Last Admin: 08/23/21 09:45 Dose: 60 mg Nitroglycerin (Nitroglycerin 0.4 Mg Tab Subl) 0.4 mg SL Q5M PRN PRN Reason: Chest Pain Ondansetron HCl (Ondansetron 4 Mg/2 Ml Inj) 4 mg IV Q8H PRN PRN Reason: Nausea And Vomiting Sodium Chloride (Sodium Chloride 0.9% 10 Ml Flush Syringe) 10 ml IV BID [facility] Last Admin: 08/23/21 09:46 Dose: 10 ml Sodium Chloride (Sodium Chloride 0.9% 10 Ml Flush Syringe) 10 ml IV PRN PRN PRN Reason: LINE FLUSH Tramadol HCl (Tramadol 50 Mg Tab) 50 mg PO Q6H PRN PRN Reason: Pain, Moderate (4-6) Valsartan (Valsartan 160mg Tab) 160 mg PO QDAY EMRLENE Last Admin: 08/23/21 09:45 Dose: 160 mg Mental Status Exam - Vital signs Last Vital Signs Temp 98.0 F 08/23/21 11:48 Pulse 67 08/23/21 07:29 Resp 18 08/23/21 11:48 BP 138/91 08/23/21 13:10 Pulse Ox 100 08/23/21 13:10 Results Result Diagrams: 08/23/21 05:07 08/23/21 05:07 Abnormal lab results 08/23/21 08/23/21 Range/Units 05:07 05:07 MCV 71 L (79-97) fl MCH 21 L (28-32) pg RDW 18.1 H (13.2-15.2) % [place] % (Auto) 7.5 H (0.0-7.3) % Eos % (Auto) 5.1 H (0.0-4.3) % Glucose 122 H (65-100) mg/dL All other labs normal.
--- NOTE | 2021-08-23 14:24 | Progress Note ---
Assessment and Plan - Patient Problems (1) Chest pain Current Visit: No Status: Acute Plan to address problem: Patient with history of chronic hypertension, admitted with atypical chest pain. Cardiac catheterization done last month in [place] was negative, and left ventricular function assessment in [place] as well as on our current echocardiogram both showed a normal ejection fraction of 60 to 65%. There is no evidence of significant cardiac disease, no further cardiac work-up is indicated, we will sign off. (2) Uncontrolled hypertension Current Visit: Yes Status: Acute Plan to address problem: Blood pressure control is optimal, systolic of 138 on valsartan and Procardia XL. Subjective Date of service: 08/23/21 Principal diagnosis: Chest pain, uncontrolled hypertension Interval history: The patient has no new cardiac complaints, and her blood pressure is much better controlled with the addition of valsartan and Procardia XL. I have informed her of the negative cardiac catheterization which she had a month ago while in [facility] as. I have also informed her about the normal left ventricular systolic function with ejection fraction of 60-65 on the echocardiogram. Objective Vital Signs Temp Pulse Resp BP Pulse Ox 08/23/21 13:10 138/91 100 08/23/21 13:03 138/91 100 08/23/21 11:48 98.0 F 18 144/89 08/23/21 07:33 161/100 08/23/21 07:29 67 99 08/23/21 06:19 60 191/100 99 08/23/21 03:46 98.4 F 66 16 135/78 96 08/23/21 02:00 18 96 08/22/21 22:55 98.6 F 71 16 139/70 95 08/22/21 20:47 114/81 08/22/21 20:04 97.5 F L 63 16 150/90 98 08/22/21 18:39 114/81 08/22/21 18:26 114/81 08/22/21 15:56 97.8 F 61 18 156/94 99 - Physical Examination HEENT: Positive: PERRL Neck: Positive: neck supple Cardiac: Positive: Reg Rate and Rhythm Lungs: Positive: Decreased Breath Sounds Neuro: Positive: Grossly Intact Abdomen: Positive: Soft Skin: Positive: Clear Extremities: Absent: edema - Labs and Meds CBC 08/23/21 Range/Units 05:07 WBC 8.0 (4.5-11.0) K/mm3 RBC 4.88 (3.65-5.03) M/mm3 Hgb 10.4 (10.1-14.3) gm/dl Hct 34.4 (30.3-42.9) % Plt Count 238 (140-440) K/mm3 Lymph # (Auto) 1.9 (1.2-5.4) K/mm3 [place] # (Auto) 0.6 (0.0-0.8) K/mm3 Eos # (Auto) 0.4 (0.0-0.4) K/mm3 Baso # (Auto) 0.0 (0.0-0.1) K/mm3 Comprehensive Metabolic Panel 08/23/21 Range/Units 05:07 Sodium 138 (137-145) mmol/L Potassium 4.4 (3.6-5.0) mmol/L Chloride 103.7 (98-107) mmol/L Carbon Dioxide 23 (22-30) mmol/L BUN 16 (7-17) mg/dL Creatinine 0.9 (0.6-1.2) mg/dL Glucose 122 H (65-100) mg/dL Calcium 9.5 (8.4-10.2) mg/dL
[2021-08-23 17:35] VITALS: BP 135/69
--- NOTE | 2021-08-24 18:48 | Electrocardiograph Report ---
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
--- NOTE | 2021-08-24 18:51 | Electrocardiograph Report ---
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
--- NOTE | 2021-08-24 19:05 | Electrocardiograph Report ---
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
== END 2021-08-23 05:50 | disposition home or self-care (01) | DRG 206 ==
LOC: ED 16:53 → 4A 08-22 01:13
PROVIDERS: ADMIT Internal Medicine Geriatric Medicine; ATTEND Internal Medicine
DX: M94.0 Chondrocostal junction syndrome [Tietze] (principal); Z68.41 Body mass index [BMI] 40.0-44.9, adult; I10 Essential (primary) hypertension; Z71.3 Dietary counseling and surveillance; F32.9 Major depressive disorder, single episode, unspecified; M19.90 Unspecified osteoarthritis, unspecified site; F17.200 Nicotine dependence, unspecified, uncomplicated; J45.909 Unspecified asthma, uncomplicated; E11.40 Type 2 diabetes mellitus with diabetic neuropathy, unspecified; Z71.6 Tobacco abuse counseling; E66.01 Morbid (severe) obesity due to excess calories; Z91.040 Latex allergy status; Z79.899 Other long term (current) drug therapy; Z88.3 Allergy status to other anti-infective agents; Z91.013 Allergy to seafood
CPT/HCPCS: 36415; 71046; 80048; 80053; 84484; 85025; 85610; 85730; 93005; 93306; G0378; J3490; C8929; J0360; J1644; J2270